=== PATIENT | female | born 1950 | race Caucasian/White ===

== ENCOUNTER → 2016-12-12 | Day surgery (SDC) | payer OTHER ==
[2016-11-21 10:45] VITALS: Ht 160 cm; Wt 95.5 kg
[~2016-12-12] VITALS: Ht 160 cm; Wt 95.5 kg
[~2016-12-12] MED LIST: ACETAMINOPHEN 325 MG TAB PO PRN; AMVISC PLUS 0.8ML SYRINGE INT OCU ONE; ASPI81TA28 PO; ATROPINE SULFATE 0.1 MG/ML 5ML SYR IV PRN; BSS FLUSH ONE; CHOL100010 PO; CYAN250T PO; EpHEDrine SULFATE INJ 50 MG/ML AMP IV PRN; EpINEphrine INJ 1MG/ML AMP 1 MG/ML AMP ONE; FENTANYL CITRATE INJ 50 MCG/1 ML 2 ML VIAL ONE; FOLIC ACID PO; INSDGI SC; LACTATED RINGER'S 1000ML 500 ML IV SCH; LIDOCAINE 3.5% OPH GEL PER APPLICATION CHARGE ONE; LIDOCAINE HCL 1% MPF 2 ML VIAL ONE; LOSA100T65 PO; MIDAZOLAM HCL 1 MG/ML 2ML VIAL ONE; NVLGI/PEN SQ; OCUCOAT 1 ML SOLN IO ONE; POVIDONE-IODINE OP SOLN 30 ML BTL ONE; PROPARACAINE 0.5% OP SOLN PER DROP CHARGE OPR SCH; ROSU5TAB PO; SODIUM HYALURONATE 10 MG/ML 0.85 ML SYR OPR ONE; SPIR25TA PO; TOBRAMYCIN/DEXAMETHASONE OPH OINT PER APPLN CHARGE ONE; ZNTT/150 PO
[2016-12-12] MEDS: PHENYLEPHRINE HCL 2.5% OP SOLN PER DROP CHARGE OPR SCH ×2 (09:10→09:16)
[2016-12-12] MEDS: TROPICAMIDE 1% OP SOLN PER DROP CHARGE OPR SCH ×2 (09:11→09:16)
[2016-12-12] MEDS: CYCLOPENTOLATE HCL 1% OP SOLN PER DROP CHARGE OPR SCH ×2 (09:12→09:17)
[2016-12-12] MEDS: KETOROLAC 0.5% OP SOLN PER DROP CHARGE OPR SCH ×2 (09:13→09:18)
[2016-12-12] MEDS: GATIFLOXACIN OP SOLN PER DROP CHARGE OPR SCH ×2 (09:15→09:40)
--- NOTE | 2016-12-12 09:30 | History & Physical Bridge - [place] ---
H&P Re-Evaluation Bridge Note: I have examined the patient, reviewed the History & Physical and in the interval since the performance of the History & Physical I have noted the following changes of clinical significance: No changes noted
[2016-12-12 10:21] VITALS: TEMP 36.8
--- NOTE | 2016-12-12 10:22 | Discharge Instructions-SurgCtr ---
Discharge Instructions Date of Service Dec 12, 2016. Visit Reason for Visit: Right Cataract Discharge Discharge Diagnosis / Problem: cataract Discharge Goals Goal(s): Improve function Activity Recommendations Activity Limitations: per Instructions/Follow-up section Anesthesia . Post Anesthesia Instructions: If you have had General Anesthesia or IV Sedation: * Do not drive today. * Resume driving when surgeon permits. * Do not make important decisions or sign legal documents today. * Call surgeon for: 1. Temperature elevations greater than 101 degrees F. 2. Uncontrollable pain. 3. Excessive bleeding. 4. Persistent nausea and vomiting. 5. Medication intolerance (nausea, vomiting or rash). * For nausea and vomiting use only clear liquids such as: tea, soda, bouillon until nausea subsides, then gradually increase diet as tolerated. * If you have any concerns or questions, call your surgeon's office. If physician is unavailable and it is an emergency, call 911 or go to the nearest emergency room. . Instructions / Follow-Up Instructions / Follow-Up ACTIVITY RECOMMENDATIONS: * No strenuous lifting, jogging or running for 4 days * No swimming or yard work for 1 week. * Limited bending is permitted, such as putting on shoes. RETURN TO SCHOOL/WORK: No work until seen by physician in office. MEDICATIONS: Resume previous medications unless instructed otherwise by your surgeon. This includes eye drops for glaucoma. Zymaxid/Gatifloxacin (bates cap) - one drop every 2 hours until bedtime Nevanac/Ilevro/Prolensa/Ketorolac (emery cap) - one drop every 4 hours until bedtime Prednisolone (white/pink cap, SHAKE WELL) - one drop every 2 hours until bedtime Starting tomorrow - all 3 drops every 4 hours until seen in the office Optive drops - as needed for discomfort SPECIAL CARE INSTRUCTIONS: * Wear eyeshield when sleeping, for four nights. * You may wear your own glasses or sunglasses while awake. * You may read or watch TV * You may shower and wash your face, but be gentle around the eye and pat dry. * Blurry vision and mild irritation are normal. * Call office if pain is more severe or vision becomes dark at . FOLLOW UP VISIT: Follow-up with Dr Carlson tomorrow. Diet Recommendations Home Diet: resume previous diet Procedures Procedures Performed: Right Cataract Phacoemulsification With Intraocular Lens Implant Pending Studies Studies pending at discharge: no Medical Emergencies . Who to Call and When: Medical Emergencies: If at any time you feel your situation is an emergency, please call 911 immediately. . Non-Emergent Contact Non-Emergency issues call your: Furniture Upholsterer Apprentice . . "Provider Documentation" section prepared by Phuc Carlson. .
--- NOTE | 2016-12-12 10:24 | [facility] Operative Report ---
Operative Report Date of Service Dec 12, 2016. Operative Report 1. PREOPERATIVE DIAGNOSIS: Cataract of the right eye. 2. POSTOPERATIVE DIAGNOSIS: Same. 3. PROCEDURE: Phacoemulsification with intraocular lens implantation of the right eye. SURGEON: Dr. Phuc Carlson. ANESTHESIA: Topical Lidocaine gel, 1% Non- Preserved intracameral Lidocaine, and monitored intravenous sedation. INDICATIONS FOR THE PROCEDURE: The patient is a 66 - year-old female with a history of cataract of the right eye causing significant visual impairment. The details of the proposed procedure were explained to the patient who asked appropriate questions and following discussion of all risks, benefits and alternatives agreed to have the procedure done. 4. OPERATION AND FINDINGS: DESCRIPTION OF PROCEDURE: After informed consent was obtained, the patient was brought to the Operating Room at the [facility]. The patient was placed in a supine position and then the right eye was prepped and draped in the usual sterile fashion for intraocular surgery. A drop of topical Lidocaine gel was placed in the operative eye. A wire lid speculum was then placed in the fornices. A corneal paracentesis was then created temporally. The Non-Preserved Lidocaine was then instilled into the anterior chamber. The anterior chamber was then pressurized with viscoelastic. A 2.0 mm clear corneal incision was then created temporally. A cystotome was inserted into the anterior chamber and used to create a tear in the anterior lens capsule. This capsular tear was then used to create a small flap and the flap was dragged in a counterclockwise direction in order to create a continuous curvilinear capsulorrhexis. Hydrodissection was accomplished with balanced salt solution. Phacoemulsification of the lens nucleus was then performed in a standard [id number] technique. The phaco time was 26 seconds with an average power of 7 %. The remaining cortical material was removed using irrigation aspiration. The anterior lens capsule was polished using Pepose polisher. The capsular bag was then filled with viscoelastic. A CrystalVaximm AO1UV +17.0 diopters lens was then loaded into the injector and injected into the capsular bag. The remaining viscoelastic was removed with the irrigation aspiration handpiece. The wound was hydrated and then checked and found to be watertight. The intraocular pressure was checked and found to be adequate. The wire lid speculum was removed and the patient's face was cleaned and dried. TobraDex ointment was placed in the inferior fornix. The patient was discharged to the Recovery Room having tolerated the procedure well. There were no complications. The patient will be seen tomorrow in the office for follow-up. I attest to the content of the Intraoperative Record and any orders documented therein. Any exceptions are noted below.
--- NOTE | 2016-12-12 10:35 | Anesthesia Progress Nt - [facility] ---
Anesthesia Post Op Note Date & Time Dec 12, 2016 at 10:35 Vital Signs Pain Intensity: 0 Vital Signs Past 12 Hours Date Time Temp Pulse Resp B/P (MAP) Pulse Ox O2 Delivery O2 Flow Rate FiO2 12/12/16 10:21 36.8 84 16 132/77 (95) 96 Room Air 12/12/16 08:56 36.6 79 18 160/80 (106) 99 Room Air Notes Mental Status: alert / awake / arousable, participated in evaluation Pt Amnestic to Procedure: Yes Nausea / Vomiting: adequately controlled Pain: adequately controlled Airway Patency, RR, SpO2: stable & adequate BP & HR: stable & adequate Hydration State: stable & adequate Anesthetic Complications: no major complications apparent
[2016-12-12 10:44] VITALS: BP 134/69; PULSE 74; O2SAT 95
== END | disposition home or self-care (01) ==
LOC: X.SURG 08:17
PROVIDERS: ATTEND Ophthalmology
DX: H26.9 Unspecified cataract (principal); I10 Essential (primary) hypertension; E78.5 Hyperlipidemia, unspecified; E11.65 Type 2 diabetes mellitus with hyperglycemia; K21.9 Gastro-esophageal reflux disease without esophagitis; M06.9 Rheumatoid arthritis, unspecified; E66.9 Obesity, unspecified; Z79.4 Long term (current) use of insulin; Z79.899 Other long term (current) drug therapy

== ENCOUNTER → 2016-12-30 | Outpatient (CLI) | payer OTHER ==
[~2016-12-30] MED LIST changes: -ACETAMINOPHEN 325 MG TAB PO PRN; -AMVISC PLUS 0.8ML SYRINGE INT OCU ONE; -ATROPINE SULFATE 0.1 MG/ML 5ML SYR IV PRN; -BSS FLUSH ONE; -EpHEDrine SULFATE INJ 50 MG/ML AMP IV PRN; -EpINEphrine INJ 1MG/ML AMP 1 MG/ML AMP ONE; -FENTANYL CITRATE INJ 50 MCG/1 ML 2 ML VIAL ONE; -LACTATED RINGER'S 1000ML 500 ML IV SCH; -LIDOCAINE 3.5% OPH GEL PER APPLICATION CHARGE ONE; -LIDOCAINE HCL 1% MPF 2 ML VIAL ONE; -MIDAZOLAM HCL 1 MG/ML 2ML VIAL ONE; -OCUCOAT 1 ML SOLN IO ONE; -POVIDONE-IODINE OP SOLN 30 ML BTL ONE; -PROPARACAINE 0.5% OP SOLN PER DROP CHARGE OPR SCH; -SODIUM HYALURONATE 10 MG/ML 0.85 ML SYR OPR ONE; -TOBRAMYCIN/DEXAMETHASONE OPH OINT PER APPLN CHARGE ONE
--- NOTE | 2016-12-30 16:00 | MAMMOGRAPHY REPORT ---
BILATERAL DIGITAL SCREENING MAMMOGRAM WITH CAD: 12/30/2016 CLINICAL HISTORY: Routine screening. Patient has no complaints. TECHNIQUE: Bilateral CC and MLO views were obtained. Current study was also evaluated with a Compute r Aided Detection (CAD) system. COMPARISON: Comparison is made to exams dated: 12/29/2015 mammogram, 12/27/2014 mammogram, 12/21/2013 m ammogram, 12/16/2012 mammogram, 12/16/2011 mammogram, and 12/12/2010 mammogram - [facility] nter. BREAST COMPOSITION: There are scattered areas of fibroglandular density in both breasts. FINDINGS: There are scattered and grouped benign round and rim calcifications bilaterally. No suspic ious mass, architectural distortion or cluster of microcalcifications is seen. IMPRESSION: ACR BI-RADS CATEGORY 1: NEGATIVE There is no mammographic evidence of malignancy. A 1 year screening mammogram is recommended. The pa tient will receive written notification of the results. Approximately 10% of breast cancers are not detected with mammography. A negative mammographic report should not delay biopsy if a clinically suggestive mass is present. Briana Dimas M.D. ay/:12/30/2016 14:38:16 Log Operations Coordinator: Agustina THOMAS(R)(M), [facility] letter sent: Normal 1/2 BI-RADS Code: ACR BI-RADS Category 1: Negative
== END | disposition home or self-care (01) ==
LOC: C.MAMM 11:10
PROVIDERS: ATTEND Obstetrics & Gynecology
DX: Z12.31 Encounter for screening mammogram for malignant neoplasm of breast (principal)

== ENCOUNTER → 2017-01-21 | Day surgery (SDC) | payer OTHER ==
[2016-12-25 11:43] VITALS: Ht 160 cm; Wt 95.5 kg
[~2017-01-21] VITALS: Ht 160 cm; Wt 95.5 kg
[~2017-01-21] MED LIST changes: +500ML BSS 0.3ML EPI 1:1000PF IRRIG ONE; +ACETAMINOPHEN 325 MG TAB PO PRN; +AMVISC PLUS 0.8ML SYRINGE INT OCU ONE; +ATROPINE SULFATE 0.1 MG/ML 5ML SYR IV PRN; +BSS FLUSH ONE; +EpHEDrine SULFATE INJ 50 MG/ML AMP IV PRN; +EpINEphrine INJ 1MG/ML AMP 1 MG/ML AMP ONE; +FENTANYL CITRATE INJ 50 MCG/1 ML 2 ML VIAL IV PRN; +LACTATED RINGER'S 1000ML 500 ML IV SCH; +LIDOCAINE 3.5% OPH GEL PER APPLICATION CHARGE ONE; +LIDOCAINE HCL 1% MPF 2 ML VIAL ONE; +MIDAZOLAM HCL 1 MG/ML 2ML VIAL ONE; +OCUCOAT 1 ML SOLN IO ONE; +ONDANSETRON INJ 2 MG/ML 2 ML VIAL IV PRN; +POVIDONE-IODINE OP SOLN 30 ML BTL ONE; +PROPARACAINE 0.5% OP SOLN PER DROP CHARGE OPL SCH; +TOBRAMYCIN/DEXAMETHASONE OPH OINT PER APPLN CHARGE ONE
[2017-01-21] MEDS: PHENYLEPHRINE HCL 2.5% OP SOLN PER DROP CHARGE OPL SCH ×2 (06:45→06:55)
[2017-01-21] MEDS: TROPICAMIDE 1% OP SOLN PER DROP CHARGE OPL SCH ×2 (06:46→06:56)
[2017-01-21] MEDS: CYCLOPENTOLATE HCL 1% OP SOLN PER DROP CHARGE OPL SCH ×2 (06:47→06:57)
[2017-01-21] MEDS: KETOROLAC 0.5% OP SOLN PER DROP CHARGE OPL SCH ×2 (06:48→06:58)
[2017-01-21] MEDS: GATIFLOXACIN OP SOLN PER DROP CHARGE OPL SCH ×2 (06:50→07:01)
[2017-01-21 07:27] VITALS: TEMP 36.4
--- NOTE | 2017-01-21 07:27 | Discharge Instructions-SurgCtr ---
Discharge Instructions Date of Service Jan 21, 2017. Visit Reason for Visit: Cataract Left Eye Discharge Discharge Diagnosis / Problem: cataract Discharge Goals Goal(s): Improve function Activity Recommendations Activity Limitations: per Instructions/Follow-up section Anesthesia . Post Anesthesia Instructions: If you have had General Anesthesia or IV Sedation: * Do not drive today. * Resume driving when surgeon permits. * Do not make important decisions or sign legal documents today. * Call surgeon for: 1. Temperature elevations greater than 101 degrees F. 2. Uncontrollable pain. 3. Excessive bleeding. 4. Persistent nausea and vomiting. 5. Medication intolerance (nausea, vomiting or rash). * For nausea and vomiting use only clear liquids such as: tea, soda, bouillon until nausea subsides, then gradually increase diet as tolerated. * If you have any concerns or questions, call your surgeon's office. If physician is unavailable and it is an emergency, call 911 or go to the nearest emergency room. . Instructions / Follow-Up Instructions / Follow-Up ACTIVITY RECOMMENDATIONS: * No strenuous lifting, jogging or running for 4 days * No swimming or yard work for 1 week. * Limited bending is permitted, such as putting on shoes. RETURN TO SCHOOL/WORK: No work until seen by physician in office. MEDICATIONS: Resume previous medications unless instructed otherwise by your surgeon. This includes eye drops for glaucoma. Zymaxid/Gatifloxacin (bates cap) - one drop every 2 hours until bedtime Nevanac/Ilevro/Prolensa/Ketorolac (emery cap) - one drop every 4 hours until bedtime Prednisolone/Durezol (white/pink cap, SHAKE WELL) - one drop every 2 hours until bedtime Starting tomorrow - all 3 drops every 4 hours until seen in the office Optive drops - as needed for discomfort SPECIAL CARE INSTRUCTIONS: * Wear eyeshield when sleeping, for four nights. * You may wear your own glasses or sunglasses while awake. * You may read or watch TV * You may shower and wash your face, but be gentle around the eye and pat dry. * Blurry vision and mild irritation are normal. * Call office if pain is more severe or vision becomes dark at . FOLLOW UP VISIT: Follow-up with Dr Carlson tomorrow. Diet Recommendations Home Diet: resume previous diet Procedures Procedures Performed: Left Cataract Phacoemulsification With Intraocular Lens Implant; Crystal Lens Pending Studies Studies pending at discharge: no Medical Emergencies . Who to Call and When: Medical Emergencies: If at any time you feel your situation is an emergency, please call 911 immediately. . Non-Emergent Contact Non-Emergency issues call your: Filling Machine Tender . . "Provider Documentation" section prepared by Phuc Carlson. .
--- NOTE | 2017-01-21 07:30 | [facility] Operative Report ---
Operative Report Date of Service Jan 21, 2017. Operative Report 1. PREOPERATIVE DIAGNOSIS: Cataract of the left eye. 2. POSTOPERATIVE DIAGNOSIS: Same. 3. PROCEDURE: Phacoemulsification with intraocular lens implantation of the left eye. SURGEON: Dr. Phuc Carlson. ANESTHESIA: Topical Lidocaine gel, 1% Non- Preserved intracameral Lidocaine, and monitored intravenous sedation. INDICATIONS FOR THE PROCEDURE: The patient is a 66 - year-old female with a history of cataract of the left eye causing significant visual impairment. The details of the proposed procedure were explained to the patient who asked appropriate questions and following discussion of all risks, benefits and alternatives agreed to have the procedure done. 4. OPERATION AND FINDINGS: DESCRIPTION OF PROCEDURE: After informed consent was obtained, the patient was brought to the Operating Room at the [facility]. The patient was placed in a supine position and then the left eye was prepped and draped in the usual sterile fashion for intraocular surgery. A drop of topical Lidocaine gel was placed in the operative eye. A wire lid speculum was then placed in the fornices. A corneal paracentesis was then created temporally. The Non-Preserved Lidocaine was then instilled into the anterior chamber. The anterior chamber was then pressurized with viscoelastic. A 2.0 mm clear corneal incision was then created temporally. A cystotome was inserted into the anterior chamber and used to create a tear in the anterior lens capsule. This capsular tear was then used to create a small flap and the flap was dragged in a counterclockwise direction in order to create a continuous curvilinear capsulorrhexis. Hydrodissection was accomplished with balanced salt solution. Phacoemulsification of the lens nucleus was then performed in a standard [id number]-[id number] technique. The phaco time was 24 seconds with an average power of 9 %. The remaining cortical material was removed using irrigation aspiration. The capsular bag was then filled with viscoelastic. A Crystalens A01UV +18.0 diopters lens was then loaded into the injector and injected into the capsular bag. The remaining viscoelastic was removed with the irrigation aspiration handpiece. The wound was hydrated and then checked and found to be watertight. The intraocular pressure was checked and found to be adequate. The wire lid speculum was removed and the patient's face was cleaned and dried. TobraDex ointment was placed in the inferior fornix. The patient was discharged to the Recovery Room having tolerated the procedure well. There were no complications. The patient will be seen tomorrow in the office for follow-up. I attest to the content of the Intraoperative Record and any orders documented therein. Any exceptions are noted below.
[2017-01-21 08:02] VITALS: BP 107/65; PULSE 81; O2SAT 95
--- NOTE | 2017-01-21 08:08 | Anesthesia Progress Nt - [facility] ---
Anesthesia Post Op Note Date & Time Jan 21, 2017 at 08:08 Vital Signs Pain Intensity: 0 Vital Signs Past 12 Hours Date Time Temp Pulse Resp B/P (MAP) Pulse Ox O2 Delivery O2 Flow Rate FiO2 01/21/17 08:02 81 16 107/65 (79) 95 Room Air 01/21/17 07:27 36.4 79 16 114/72 (86) 96 Room Air 01/21/17 06:17 37.0 84 18 138/107 (117) 94 Room Air Notes Mental Status: alert / awake / arousable, participated in evaluation Pt Amnestic to Procedure: Yes Nausea / Vomiting: adequately controlled Pain: adequately controlled Airway Patency, RR, SpO2: stable & adequate BP & HR: stable & adequate Hydration State: stable & adequate Anesthetic Complications: no major complications apparent
== END | disposition home or self-care (01) ==
LOC: X.SURG 06:10
PROVIDERS: ATTEND Ophthalmology
DX: H26.9 Unspecified cataract (principal); E11.9 Type 2 diabetes mellitus without complications; I10 Essential (primary) hypertension; E78.5 Hyperlipidemia, unspecified; M06.9 Rheumatoid arthritis, unspecified; K21.9 Gastro-esophageal reflux disease without esophagitis; I34.0 Nonrheumatic mitral (valve) insufficiency; Z79.4 Long term (current) use of insulin; Z79.82 Long term (current) use of aspirin; Z87.891 Personal history of nicotine dependence; Z80.3 Family history of malignant neoplasm of breast; Z82.49 Family history of ischemic heart disease and other diseases of the circulatory system

== ENCOUNTER → 2017-07-25 | Outpatient (CLI) | payer OTHER ==
[~2017-07-25] MED LIST changes: -500ML BSS 0.3ML EPI 1:1000PF IRRIG ONE; -ACETAMINOPHEN 325 MG TAB PO PRN; -AMVISC PLUS 0.8ML SYRINGE INT OCU ONE; -ATROPINE SULFATE 0.1 MG/ML 5ML SYR IV PRN; -BSS FLUSH ONE; -EpHEDrine SULFATE INJ 50 MG/ML AMP IV PRN; -EpINEphrine INJ 1MG/ML AMP 1 MG/ML AMP ONE; -FENTANYL CITRATE INJ 50 MCG/1 ML 2 ML VIAL IV PRN; -LACTATED RINGER'S 1000ML 500 ML IV SCH; -LIDOCAINE 3.5% OPH GEL PER APPLICATION CHARGE ONE; -LIDOCAINE HCL 1% MPF 2 ML VIAL ONE; -MIDAZOLAM HCL 1 MG/ML 2ML VIAL ONE; -OCUCOAT 1 ML SOLN IO ONE; -ONDANSETRON INJ 2 MG/ML 2 ML VIAL IV PRN; -POVIDONE-IODINE OP SOLN 30 ML BTL ONE; -PROPARACAINE 0.5% OP SOLN PER DROP CHARGE OPL SCH; +RANI150T85 PO; -TOBRAMYCIN/DEXAMETHASONE OPH OINT PER APPLN CHARGE ONE; -ZNTT/150 PO
--- NOTE | 2017-08-01 06:38 | CODING QUERY NO DIAGNOSIS ---
TREATMENT RENDERED WITHOUT A DIAGNOSIS Dr. Ferguson, To promote full compliance with coding requirements relating to patient care, physician participation is requested in all cases of computer language coder uncertainty. Please assist us with providing a diagnosis/symptom for the test(s) below: A diagnosis/symptom was not documented on your Order. A valid diagnosis/symptom is required to bill all insurances. Please remember that we are unable to code a diagnosis of rule out, probable, possible, questionable, or suspected. Tests that require a diagnosis: * Routine ECG DIAGNOSIS: DATE OF SERVICE: 07/25/17 Provider Signature: Date: Thank you Garrett Patten [facility] General Information Management Once completed, please kindly fax back to [phone] For questions please call [phone]
== END | disposition home or self-care (01) ==
LOC: C.CPL 10:20
DX: Z01.89 Encounter for other specified special examinations (principal)

== ENCOUNTER → 2017-10-16 | Outpatient (CLI) | payer OTHER ==
[~2017-10-16] MED LIST changes: -CHOL100010 PO; +CHOL100027 PO; +FOLI1TAB8 PO; -INSDGI SC; +INSDGIPEN SC; -ROSU5TAB PO
== END | disposition home or self-care (01) ==
LOC: C.LABPBG 07:32
PROVIDERS: ATTEND Internal Medicine Endocrinology, Diabetes & Metabolism
DX: E11.9 Type 2 diabetes mellitus without complications (principal); E78.5 Hyperlipidemia, unspecified

== ENCOUNTER → 2018-02-05 | Outpatient (CLI) | payer OTHER ==
--- NOTE | 2018-02-05 14:57 | MAMMOGRAPHY REPORT ---
BILATERAL DIGITAL SCREENING MAMMOGRAM TOMOSYNTHESIS WITH CAD: 02/05/2018 CLINICAL HISTORY: Routine screening. Patient has no complaints. TECHNIQUE: The study was acquired using full field digital technology and interpreted from soft copy. Breast tomosynthesis in addition to standard 2D mammography was performed. Current study was also ev aluated with a Computer Aided Detection (CAD) system. COMPARISON: Comparison is made to exams dated: 12/30/2016 mammogram, 12/29/2015 mammogram, 12/27/2014 m ammogram, 12/21/2013 mammogram, 12/16/2011 mammogram, and 12/12/2010 mammogram - [facility] nter. BREAST COMPOSITION: There are scattered areas of fibroglandular density in both breasts. FINDINGS: No suspicious masses, calcifications, or areas of architectural distortion are noted in either breast . There has been no significant interval change compared to prior exams. Scattered bilateral benign-a ppearing calcifications are not significantly changed. IMPRESSION: ACR BI-RADS CATEGORY 2: BENIGN There is no mammographic evidence of malignancy. A 1 year screening mammogram is recommended.( 019) The patient will receive written notification of the results. Some breast cancers are not detected with mammography. A negative mammographic report should not brigette y biopsy if a clinically suggestive mass is present. Christy Jefferson M.D. /:02/05/2018 13:40:13 Clam Grower: Amanda Cronin, [facility] letter sent: Normal 1/2 BI-RADS Code: ACR BI-RADS Category 2: Benign
== END | disposition home or self-care (01) ==
LOC: C.MAMM 11:57
PROVIDERS: ATTEND Obstetrics & Gynecology
DX: Z12.31 Encounter for screening mammogram for malignant neoplasm of breast (principal)

== ENCOUNTER 2018-07-22 12:07 | Inpatient (IN) ==
[2018-07-22 13:17] LABS: Basophils # (auto) 0.03 K/uL (0-0.2); Basophils % (auto) 0.4 %; Eosinophils # (auto) 0.02 K/uL (0-0.5); Eosinophils % (auto) 0.3 %; Hematocrit (blood only) 38.7 % (37-47); Hemoglobin 12.9 g/dL (12.0-16.0); Immature Granulocytes # (auto) 0.01 K/uL (0.00-0.02); Immature Granulocytes % (auto) 0.1 %; Lymphocytes # (auto) 0.98 K/uL (1.2-3.4); Mean Corpuscular Hgb Conc 33.3 g/dL (32-36); Mean Corpuscular Volume 88.4 fL (80-100); Mean Platelet Volume 10.6 fL (7.4-10.4); Monocytes % (auto) 6.6 %; Neutrophils % (auto) 79.6 %; Platelet Count 260 K/uL (130-400); Red Blood Count 4.38 M/uL (4.2-5.4); White Blood Count 7.54 K/uL (4.8-10.8)
[2018-07-22 13:33] LABS: Albumin Level 3.9 gm/dl (3.4-5.0); BUN Creatinine Ratio 10.3 (10-20); Calcium 9.9 mg/dl (8.5-10.1); Est GFR (African American) 57.4; Est GFR (Non-African American) 49.6; Potassium 4.5 mmol/L (3.5-5.1)
[2018-07-22 13:36] LABS: Albumin Globulin Ratio 0.8 (0.9-2); Bilirubin,Total 0.5 mg/dl (0.2-1); Globulin 4.6 gm/dl (2.5-4.0); Total Protein 8.5 gm/dl (6.4-8.2)
[2018-07-22 23:05] LABS: INR 1.1 (0.9-1.1); Prothrombin Time 10.9 Seconds (9.0-12.0)
[2018-07-23 06:13] LABS: Basophils # (auto) 0.02 K/uL (0-0.2); Basophils % (auto) 0.5 %; Eosinophils # (auto) 0.08 K/uL (0-0.5); Eosinophils % (auto) 1.8 %; Hematocrit (blood only) 37.7 % (37-47); Hemoglobin 12.4 g/dL (12.0-16.0); Immature Granulocytes # (auto) 0.01 K/uL (0.00-0.02); Immature Granulocytes % (auto) 0.2 %; Lymphocytes # (auto) 1.67 K/uL (1.2-3.4); Lymphocytes % (auto) 37.9 %; Mean Corpuscular Hgb Conc 32.9 g/dL (32-36); Mean Corpuscular Volume 88.9 fL (80-100); Mean Platelet Volume 10.6 fL (7.4-10.4); Monocytes % (auto) 6.8 %; Neutrophils # (auto) 2.33 K/uL (1.4-6.5); Neutrophils % (auto) 52.8 %; Platelet Count 216 K/uL (130-400); RDW Coefficient of Variation 13.2 % (11.5-14.5); RDW Standard Deviation 42.6 fL (36.4-46.3); Red Blood Count 4.24 M/uL (4.2-5.4); White Blood Count 4.41 K/uL (4.8-10.8)
[2018-07-24 09:10] LABS: Estimated Average Glucose 163 mg/dl
[2018-07-25 05:52] LABS: Hematocrit (blood only) 36.8 % (37-47); Hemoglobin 12.2 g/dL (12.0-16.0); Mean Corpuscular Hgb Conc 33.2 g/dL (32-36); Mean Corpuscular Volume 88.2 fL (80-100); Platelet Count 269 K/uL (130-400); RDW Coefficient of Variation 13.2 % (11.5-14.5); RDW Standard Deviation 41.9 fL (36.4-46.3); Red Blood Count 4.17 M/uL (4.2-5.4); White Blood Count 7.41 K/uL (4.8-10.8)
[2018-07-25 06:17] LABS: Creatinine Clr Calc Pharmacy 54.7 ml/min; Est GFR (African American) 65.8; Est GFR (Non-African American) 56.8
[2018-07-28 15:09] LABS: Anti Nuclear Antibody Screen POSITIVE (NEGATIVE)
[2018-07-31 14:15] LABS: ANA Pattern SPECKLED
== END 2018-07-25 12:57 ==
LOC: ED 12:07 → 2N 12:07 → SUATTDRO 20:07 → 2N 21:38

== ENCOUNTER 2018-09-23 21:40 | Inpatient (IN) ==
[2018-09-23] MEDS ORDERED: HYDROCODONE/ACETAMOPHEN 5/325MG TAB PO STA (22:11)
--- NOTE | 2018-09-23 22:36 | XRay Report ---
XR ankle RT min 3V routine CLINICAL HISTORY: Fall. right ankle injury pain COMPARISON: None. DISCUSSION: Oblique fracture distal fibula. Moderate generalized soft tissue edema. No evidence for d islocation. IMPRESSION: Oblique fracture distal fibula The above report was generated using voice recognition software. It may contain grammatical, syntax or spelling errors. Electronically signed by: Adrian Barrett M.D. 09/23/2018 10:35 PM
--- NOTE | 2018-09-24 01:58 | Emergency Department Note ---
Entered by Brady Stock acting as a scribe for Isael Wilburn MD ED Visit Note The patient was seen and examined by myself in conjunction with Meek Puckett. I agree with the history, physical and findings as documented. Please see the note for disposition and details. . : Fractured fibula Qualifiers: Encounter type: initial encounter Fibula location: distal Fracture type: closed Fracture morphology: other fracture Laterality: right Qualified Code(s): S82.831A - Other fracture of upper and lower end of right fibula, initial encounter for closed fracture The scribe's documentation has been prepared under my direction and personally reviewed by me in its entirety. I confirm that the note above accurately reflects all work, treatment, procedures, and medical decision making performed by me.
[2018-09-24] MEDS ORDERED: ACETAMINOPHEN 325 MG TAB PO PRN (02:30)
[2018-09-24] MEDS ORDERED: DICYCLOMINE HCL 10 MG CAP PO PRN (02:30)
[2018-09-24] MEDS ORDERED: INSULIN GLARGINE SOLOSTAR 100 UNITS/ML 3 ML PEN SC STA (02:30)
[2018-09-24] MEDS ORDERED: ONDANSETRON INJ 2 MG/ML 2 ML VIAL IV PRN (02:30)
[2018-09-24] MEDS ORDERED: GLUCOSE 40% GEL 15 GM TUBE PO PRN (02:45)
[2018-09-24] MEDS ORDERED: CARBOHYDRATES FOR HYPOGLYCEMIA PO PRN (02:45)
[2018-09-24] MEDS ORDERED: DEXTROSE 50% 50 ML SYRINGE IV PRN (02:45)
[2018-09-24] MEDS ORDERED: GLUCOSE 10 TABS/TUBE PO PRN (02:45)
[2018-09-24] MEDS ORDERED: GLUCAGON FOR INJ 1 MG VIAL SQ PRN (02:45)
--- NOTE | 2018-09-24 02:54 | History and Physical Report ---
DATE OF ADMISSION: 09/23/2018 CHIEF COMPLAINT: Status post fall and right fibula fracture. HISTORY OF PRESENT ILLNESS: This is a 68-year-old female with past medical history significant for diabetes, hypertension, past tobacco abuse, presents due to fall and found right fibula fracture. The patient has history of weakness in both the legs, more in the left leg.Initially patient was having left leg weakness mostly proximal greater than distal. EMG was done by neurology which showed left lumbosacral plexopathy. MRI also showed disc bulging at L4-5 and L5-S1 and she is status post back surgery with L4-S1 decompression fusion in 05/2018. After surgery she did okay for about a month then after that she developed progressive weakness of both legs, more in the left leg. She was again admitted with bilateral leg weakness in 07/2018 and she had extensive workup with MRI scans of the head, cervical spine, thoracic spine, lumbar spine. Her symptoms were thought to be mostly from the scar and inflammation of the lumbar spine and she was started on prednisone taper and discharged to [facility], where she stayed for about a week. She says her weakness has improved since then, but she still has ongoing weakness and she still gets physical therapy at home. She is walking with a walker since her surgery. Today for first time in the physical therapy at home, she was able to walk with a cane but later in the day when she go up from the bed, she was holding her walker and she suddenly fell down. No dizziness or any symptoms prior to the fall. She just fell down and she was having pain in the right leg and could not get up. She lives with her . Her went up to buy some groceries and she called her neighbors to come and help her. Her later came and patient was brought into the hospital, where she was found to have right distal fibula fracture. While resting she is doing okay. Her hemodynamics are stable. Denies any chest pain or shortness of breath. No cough, no fever, no chills, no headache, no blurred vision, no runny nose, no sore throat. Appetite is okay. No difficulty swallowing. No nausea, no vomiting, no abdominal pain. Normal bowel and bladder movements. No hematuria,or hematochezia, no burning micturition. No rash, no easy bruising or bleeding. ER tried to send her to [facility], but could no bed availability currently so we will admit her to the hospital with PT, OT and Social Service to help with discharge planning to [facility]. ALLERGIES: ALLOPURINOL, CRABS, SCALLOPS. PAST MEDICAL HISTORY: As mentioned above. PAST SURGICAL HISTORY: , laparoscopic hysterectomy, cholecystectomy, back surgery, cardiac catheterization, status post cataract surgeries, left total knee replacement, right total knee replacement, repair of right rotator cuff, colonoscopy. MEDICATIONS: The patient is currently on Tylenol 500 mg daily p.r.n., aspirin 81 mg p.o. daily, vitamin B12 2000 mcg p.o. daily, dicyclomine 10 mg p.o. q.i.d. p.r.n., folic acid 1 mg p.o. a.m., gabapentin 600 mg p.o. t.i.d., Lantus 48 units subcutaneous at bedtime, losartan 100 mg p.o. daily, Meloxicam 50 mg p.o. daily, NovoLog FlexPen t.i.d., vitamin D 4000 units p.o. daily. FAMILY HISTORY: Significant for father has diabetes, normal pressure hydrocephalus. Mother has stroke. Sister has lung disorder and stroke. SOCIAL HISTORY: and lives with her . Former smoker. Alcohol rarely. No drug use. REVIEW OF SYMPTOMS: As per HPI. Rest of review of systems negative. PHYSICAL EXAMINATION: GENERAL: The patient is obese, not in acute distress. VITAL SIGNS: Temperature 36.8, pulse 72, respiratory rate 18, blood pressure 152/75, oxygen 98% room air. HEENT: No pallor, no icterus. Pupils equal, round and reactive to light. NECK: No JVD, no neck masses, no carotid bruit. CARDIOVASCULAR: S1, S2 heard, regular rate and rhythm, no murmur, no gallop. RESPIRATORY SYSTEM: Normal AP diameter. No accessory muscle use. No wheezing, no crackles. ABDOMEN: Soft, bowel sounds present. Nontender. No distention. CENTRAL NERVOUS SYSTEM: Cranial nerves II-XII grossly intact. Nonfocal. EXTREMITIES: No erythema or edema seen. Right lower extremity is in wrap. LABS: Unavailable at this time. Right ankle x-ray shows oblique fracture of the distal fibula. ASSESSMENT AND PLAN: A 68-year-old female status post mechanical fall and right distal fibula fracture. 1. Mechanical fall and right distal fibula fracture. Ongoing weakness of the lower extremities since had lumbar back surgery, leg is wrapped in the Emergency Room, may need a cast. We will consult orthopedics. Physical therapy and occupation therapy, Social Service to help with rehabilitation placement. Observe in the medical floor. Pain control. 3. History of diabetes. Continue Lantus and insulin sliding scale. We will follow hemoglobin A1c levels. Follow the blood sugars. 4. History of hypertension. Continue losartan. We will monitor the blood pressure. 5. Deep venous thrombosis prophylaxis. We will place on heparin subcutaneously. TO discuss about DVT px at discharge with orthopedics. DISPOSITION: Observation medical floor. PT and OT prior to discharge. Social service to help with rehab placement. Level I full code. MTDD
[2018-09-24] MEDS: OXYCODONE/ACETAMINOPHEN 5mg/325mg TAB PO PRN ×4 (03:04→21:58)
[2018-09-24 05:45] LABS: Basophils # (auto) 0.02 K/uL (0-0.2); Basophils % (auto) 0.3 %; Eosinophils # (auto) 0.11 K/uL (0-0.5); Eosinophils % (auto) 1.6 %; Hematocrit (blood only) 35.3 % (37-47); Immature Granulocytes # (auto) 0.01 K/uL (0.00-0.02); Immature Granulocytes % (auto) 0.1 %; Lymphocytes # (auto) 1.76 K/uL (1.2-3.4); Lymphocytes % (auto) 25.4 %; Mean Platelet Volume 10.7 fL (7.4-10.4); Monocytes # (auto) 0.48 K/uL (0.11-0.59); Monocytes % (auto) 6.9 %; Neutrophils # (auto) 4.54 K/uL (1.4-6.5); Neutrophils % (auto) 65.7 %; Platelet Count 182 K/uL (130-400); RDW Coefficient of Variation 14.5 % (11.5-14.5); Red Blood Count 4.01 M/uL (4.2-5.4); White Blood Count 6.92 K/uL (4.8-10.8)
[2018-09-24] MEDS ORDERED: HEPARIN SOD 5,000 UNIT/0.5 ML VIAL SQ SCH (06:00)
--- NOTE | 2018-09-24 06:24 | Emergency Department Note ---
History of Present Illness General Chief complaint: Ankle Pain Stated complaint: ANKLE PAIN, LEG WEAKNESS, FALL Time Seen by Provider: 09/23/18 21:57 History of Present Illness Maximum Pain Intensity: 6 This is a 68-year-old female presenting to the emergency department for evaluation right lower leg pain. The patient states that approximately 4 hours ago she was at her kitchen table, stood, and fell. The patient reports a "crunch" was heard, causing her significant concern. The patient was able to stand and ambulate with the assistance of her after the fall. The patient has a fairly persistent history of bilateral lower extremity weakness. 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 Correia's office. The patient did well after the surgery, but slowly began developing bilateral leg weakness. The patient has undergone several rounds of physical therapy for strength, but she continues with difficulty ambulating. Her left leg is primarily her weak leg, and her right leg is her good leg. The patient is concerned as she feels that she may have injured her right leg. She does have a history of neuropathy secondary to diabetes. She rates her current discomfort a 5/10. She did take a tramadol this evening without significant improvement of symptoms. She did not strike her head or lose consciousness. She does not report other extremity injury. The fall sounds mechanical in nature. Home Medications Home Medications Medication Instructions Recorded Confirmed Type Lantus U-100 Insulin 48 unit SUBCUT QPM 05/11/18 09/23/18 History Novolog Flexpen U-100 Insulin 1 dose SUBCUT TIDM 05/11/18 09/23/18 History Vitamin D3 4,000 unit PO QPM 05/11/18 09/23/18 History acetaminophen [Acetaminophen Extra 500 mg PO QDB PRN 05/11/18 09/23/18 History Strength] aspirin [Ecotrin Low Strength] 81 mg PO QPM 05/11/18 09/23/18 History cyanocobalamin (vitamin B-12) 2,000 mcg PO QAM 05/11/18 09/23/18 History [Vitamin B-12] dicyclomine 10 mg PO QID PRN 05/11/18 09/23/18 History folic acid 1 mg PO QPM 05/11/18 09/23/18 History losartan 100 mg PO QAM 05/11/18 09/23/18 History gabapentin 600 mg PO TID 09/23/18 09/23/18 History meloxicam 15 mg PO QAM 09/23/18 09/23/18 History Allergies Allergy/AdvReac Type Severity Reaction Status Date / Time allopurinol Allergy Intermediate RASH Verified 09/23/18 23:00 crab Allergy Mild itching Verified 09/23/18 23:00 scallops AdvReac Intermediate N/V Verified 09/23/18 23:00 Lobster AdvReac Severe N/V Uncoded 09/23/18 23:00 Past Med/Surg History Medical History Irritable bowel disease (Chronic) Lumbar radicular pain (Chronic) Radiation down LLE 2/2 spinal stenosis Hyperlipidemia (Chronic) Hypertension (Chronic) DM type 2 (diabetes mellitus, type 2) (Chronic) Diabetes mellitus, type 2 (Inactive) Hx of fall (Inactive) Patient reports that she has fallen several tiimes d/t to weakness and nerve issues in left leg Hyperlipidemia (Inactive) Hypertension (Inactive) Spinal stenosis (Inactive) compression from L3-L5 Surgical History History of cardiac cath (Chronic) ? [facility] - Patient does not know date History of cataract surgery (Chronic) right and left with lens implants History of hysterectomy (Chronic) BSO History of total left knee replacement (Chronic) History of total right knee replacement (Chronic) History of cholecystectomy (Chronic) H/O section (Chronic) H/O repair of right rotator cuff (Chronic) History of section (Inactive) x2 History of cholecystectomy (Inactive) History of colonoscopy (Inactive) History of repair of rotator cuff (Inactive) right Hx of total knee replacement (Inactive) left 2012 and right 2013 Social History Communication Ability: Effective Beliefs That Will Affect Care: None Current Living Situation: Spouse current occupational status: retired other: 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 Feels Safe at Home: Yes Safety Concerns: Feels Safe At This Time Smoking Status: Never smoker Hx Alcohol Use: Yes Hx Substance Use: No Review of Systems A total of 10 systems reviewed and were otherwise negative Physical Exam Vital Signs Vital Signs - 24 hr 09/23/18 21:53 09/24/18 00:00 09/24/18 01:48 Temperature 36.8 C Temperature Source Oral Sepsis Recent Fever Within 48 Hours No Sepsis Action Taken by Nursing No Action Required Pulse Rate 97 H 92 H Pulse Rate [Right Finger] 72 Pulse Rhythm [Right Finger] Regular Pulse Strength [Right Finger] Normal Respiratory Rate 20 18 17 Respiratory Effort / Characteristics Non-Labored Spontaneous Respiratory Depth Normal Respiratory Pattern Regular Blood Pressure 166/90 H 152/76 H Blood Pressure [Right Arm] 152/75 H Blood Pressure Mean 115 Blood Pressure Mean [Right Arm] 100 Blood Pressure Position [Right Arm] Lying Pulse Oximetry 97 98 95 Oxygen Delivery Method Room Air Room Air Room Air 09/24/18 02:26 Temperature 36.7 C Temperature Source Oral Sepsis Recent Fever Within 48 Hours Sepsis Action Taken by Nursing Pulse Rate Pulse Rate [Right Finger] 87 Pulse Rhythm [Right Finger] Regular Pulse Strength [Right Finger] Respiratory Rate 20 Respiratory Effort / Characteristics Non-Labored Spontaneous Respiratory Depth Normal Respiratory Pattern Regular Blood Pressure Blood Pressure [Right Arm] 178/78 H Blood Pressure Mean Blood Pressure Mean [Right Arm] 111 Blood Pressure Position [Right Arm] Pulse Oximetry 99 Oxygen Delivery Method Room Air VITALS: Vitals are noted on the nurse's note and reviewed by myself. Vital signs with mildly elevated blood pressure GENERAL: Pleasant appearing white female who is elderly and cooperative with examination. HEAD: Normocephalic atraumatic. EARS: External ear normal. External auditory canals clear, tympanic membranes pearly emery without erythema or effusion bilaterally. EYES: Pupils equal round and reactive to light and accommodation. Conjunctivae without injection, sclerae without icterus. Extraocular movements intact. NOSE: Patent, turbinates without inflammation or discharge. MOUTH: Mucous membranes moist. Tonsils are not enlarged. Pharynx without er ythema, blood, or exudate. Uvula midline. Airway patent. NECK: Supple without nuchal rigidity. No lymphadenopathy. No thyromegaly. Cervical spine is nontender. HEART: Regular rate and rhythm without murmurs gallops or rubs. LUNGS: Clear to auscultation bilaterally without wheezes, rales or rhonchi. No retractions or accessory muscle use. ABDOMEN: Positive normal bowel sounds x 4. Soft, nontender, without masses or organomegaly. MUSCULOSKELETAL: No significant lower extremity edema noted. There is tenderness along the lateral aspect of the right ankle into the right lateral malleolus. No gross deformity, laceration, or bleeding noted. Patient is able to move the toes on command. Pulses are intact. NEURO: Patient was alert and oriented to person place and time. CN II through XII grossly intact SKIN: The skin was without rashes, erythema, edema, or bruising. Capillary r efill less than 2 seconds. Course Administered Medications Oxycodone/Acetaminophen (Percocet 5mg/325mg) 1 tab PO Q6H PRN PRN Reason: Pain Stop: 10/08/18 02:29 Last Admin: 09/24/18 03:04 Dose: 1 tab Documented by: [id number] Discontinued Medications Hydrocodone Bitart/Acetaminophen ([place] 5/325) 2 tab PO NOW STA Stop: 09/23/18 22:12 Last Admin: 09/23/18 22:18 Dose: 2 tab Documented by: [id number] Insulin Glargine (Lantus Solostar Pen) 20 units SC NOW STA Stop: 09/24/18 02:31 Last Admin: 09/24/18 03:06 Dose: Not Given Documented by: [id number] Cosigned by: [id number] Medical Decision Making Differential Diagnosis Differential diagnosis includes, but is not limited to: Sprain, strain, fracture, dislocation, subluxation, contusion, and others Laboratory Data Result diagrams: 09/24/18 05:27 09/24/18 05:27 Lab Results 09/23/18 09/24/18 Range/Units 23:16 05:27 WBC 6.92 (4.8-10.8) K/uL RBC 4.01 L (4.2-5.4) M/uL Hgb 12.0 (12.0-16.0) g/dL Hct 35.3 L (37-47) % MCV 88.0 (80-100) fL MCH 29.9 (25-34) pg MCHC 34.0 (32-36) g/dL RDW Std Deviation 47.0 H (36.4-46.3) fL RDW Coeff of Gold 14.5 (11.5-14.5) % Plt Count 182 (130-400) K/uL MPV 10.7 H (7.4-10.4) fL Immature Gran % (Auto) 0.1 % Neut % (Auto) 65.7 % Lymph % (Auto) 25.4 % [place] % (Auto) 6.9 % Eos % (Auto) 1.6 % Baso % (Auto) 0.3 % Immature Gran # (Auto) 0.01 (0.00-0.02) K/uL Neut # (Auto) 4.54 (1.4-6.5) K/uL Lymph # (Auto) 1.76 (1.2-3.4) K/uL [place]lee # (Auto) 0.48 (0.11-0.59) K/uL Eos # (Auto) 0.11 (0-0.5) K/uL Baso # (Auto) 0.02 (0-0.2) K/uL POC Glucose 210 H (70-99) Imaging Data Radiologist's Impression: XR ankle RT min 3V routine CLINICAL HISTORY: Fall. right ankle injury pain COMPARISON: None. DISCUSSION: Oblique fracture distal fibula. Moderate generalized soft tissue edema. No evidence for dislocation. IMPRESSION: Oblique fracture distal fibula MDM Narrative Physical exam and history were performed. Nursing notes, EMR, and Medication List were personally reviewed. Patient appears to have ongoing bilateral lower extremity weakness. She has difficulty ambulating at home at baseline. She regularly uses a walker, however she did have a fall today and is tender along the distal right lower leg. The patient was given oral Vicodin here in the department for comfort. The case was discussed with my attending physician, who also independently evaluated the patient and remained involved in care and decision-making. X-rays were obtained and reviewed by myself and radiology showing an oblique fracture through the distal fibula. I discussed options of care with the patient. She was placed in an Ortho-Glass splint with neurovascular status remaining intact. We attempted to ambulate the patient with a walker, however she had significant difficulty even getting off the bed and moving a few steps. After multiple attempts the patient was not able to ambulate with this new injury. I did engage case management, who contacted [facility] as this may be a likely disposition point for the patient. [facility] does not have beds this evening to facilitate intake of the patient. I discussed options of care with the patient and family at length, and she does not feel comfortable going home. The case was discussed with the on-call [facility] hospitalist who agreed to evaluate the patient here in the department. Please see their dictation for further patient course, plan, and disposition. The chart was completed utilizing [employer] Voice Recognition Software. Grammatical errors, random word insertions, pronoun errors, and incomplete sentences are an occasional consequence of this system due to software limitations, ambient noise, and hardware issues. Any formal questions or concerns about the content, text, or information contained within the body of this dictation should be directly addressed to the provider for clarification. . Impression & Plan Fractured fibula, Unable to ambulate Discharge Plan Visit Data *Final* Discharge Date/Time: 09/24/18 01:48 Chief Complaint: Ankle Pain Stated Complaint: ANKLE PAIN, LEG WEAKNESS, FALL ED Provider: Isael Wilburn ED Midlevel Provider: Meek Jordan Discharge Problem: Fractured fibula, Unable to ambulate Patient Disposition: Admitted As Inpatient Discharge Instructions Interventions: ED Discharge Assessment Last Done: 09/24/18 01:48 Discharge Problem: Fractured fibula Qualifiers: Encounter type: initial encounter Fibula location: distal Fracture type: closed Fracture morphology: other fracture Laterality: right Qualified Code(s): S82.831 A - Other fracture of upper and lower end of right fibula, initial encounter for closed fracture
[2018-09-24 06:25] LABS: BUN Creatinine Ratio 22.1 (10-20); Calcium 9.4 mg/dl (8.5-10.1); Creatinine Clr Calc Pharmacy 70.1 ml/min; Est GFR (African American) 89.3; Magnesium 1.8 mg/dl (1.8-2.4)
[2018-09-24 07:04] LABS: Estimated Average Glucose 203 mg/dl; Hemoglobin A1C 8.7 % (4.5-5.6)
[2018-09-24] MEDS ORDERED: INSULIN ASPART 100 UNITS/ML 3 ML PEN SC SCH (07:30)
[2018-09-24 07:38] LABS: INR 1.1 (0.9-1.1); Prothrombin Time 10.8 Seconds (9.0-12.0)
[2018-09-24] MEDS: CYANOCOBALAMIN 500 MCG TABLET (VITAMIN B-12) PO SCH (07:50)
[2018-09-24] MEDS: LOSARTAN POTASSIUM 50 MG TAB PO SCH (07:51)
[2018-09-24] MEDS: GABAPENTIN 600 MG TAB PO SCH ×3 (07:51→21:27)
[2018-09-24] MEDS: MELOXICAM 7.5 MG TAB PO SCH (07:51)
[2018-09-24] MEDS ORDERED: Nursing to Pharmacy Communication ONE (08:18)
--- NOTE | 2018-09-24 12:54 | Consultation Report ---
DATE OF ADMISSION: 09/24/2018 CHIEF COMPLAINT: Right ankle pain, orthopedic. HISTORY OF PRESENT ILLNESS: Jagruti is pleasant, she is 68. I do remember remotely from the office. She had spinal stenosis. She had surgery expertly done by Dr. Correia a few months ago, had progressive weakness, had some lower extremity difficulty, a foot drop, some improvement and some regression. She got up and fell, suffered acute injury to her right lower extremity yesterday, 09/23/2018. PAST MEDICAL HISTORY: Significant for hypertension, diabetes. PAST SURGICAL HISTORY: Laparoscopic hysterectomy, cholecystectomy, relatively recent spine surgery, cataract surgery, bilateral knee replacements. FAMILY HISTORY: Significant for diabetes, mother with a stroke. MEDICATIONS: Listed. REVIEW OF SYSTEMS: Her major complaint is her right ankle from an orthopedic standpoint. PHYSICAL EXAMINATION: VITAL SIGNS: Remain stable. EXTREMITIES: Her ankle was wrapped up appropriately and protected with a splint and Justin bandages. IMAGING DATA: X-rays reviewed demonstrated a completely nondisplaced fracture of the distal fibula. IMPRESSION: Distal fibular fracture, completely nondisplaced. PLAN: Includes a [place] Cam walker for support. I will allow about 50 percent weightbearing. She should be stable to be discharged home or to [facility] any time in the next 24-48 hours. JAKUB
[2018-09-24] MEDS: INSULIN ASPART 100 UNITS/ML 3 ML PEN SC SCH ×3 (13:16→21:30)
--- NOTE | 2018-09-24 16:29 | Hospitalist Progress Note ---
Date of Service September 24, 2018 Assessment & Plan (1) Fractured fibula: A 68-year-old female status post mechanical fall and right distal fibula fracture. Mechanical fall and right distal fibula non displaced fracture. -patient's left leg in splint as placed in the Emergency room -patient evaluated by orthopedic service and that this a nonoperative injury. orthopedic service comments about a [place] Cam walker for support and allow about 50 percent weightbearing. -Case management applied for physical therapy center admission to [facility] but a bed there is not available at this time -PT/OT while inpatient for now -continue with pain control medications, continue with bowel regimen to avoid narcotic induced ileus History of L3-S1 lumbar decompression fusion Diabetes Mellitus Type 2 HbA1c is 8.7 Continue Lantus and insulin sliding scale History of hypertension. Continue losartan Deep venous thrombosis prophylaxis. heparin subcutaneously Full Code Subjective Patient resting on bed. Patient had pain medications for the right leg. No acute distress. patient denies shortness of breath. No chest pain. No abdominal pain. No vomiting. No lightheadedness Physical Exam Vital Signs (Past 24 Hours): Last Vital Signs Temp 36.8 C 09/24/18 16:17 Pulse 84 09/24/18 16:17 Resp 18 09/24/18 16:17 BP 134/75 09/24/18 16:17 Pulse Ox 97 09/24/18 16:17 Constitutional: WD/WN, vitals as above Eyes: PERRL, conjunctivae normal, anicteric sclerae EOM intact bilaterally ENMT: external ear and nose normal, oropharynx normal Neck: trachea midline, no thyromegaly Respiratory: normal respiratory effort, lungs clear to auscultation Cardiovascular: RRR, no murmur, no edema Gastrointestinal (Abdomen): normal bowel sounds, soft, nontender, no hepatosplenomegaly Musculoskeletal: Head/Neck/Chest: normocephalic and head atraumatic Extremities: + lower leg abnormality (right leg in splint) Neurologic: PERRL, EOMI, accommodation nl, no face palsy, no dysarthria (1) Fractured fibula Encounter type: initial encounter Fibula location: distal Fracture morphology: other fracture Fracture type: closed Laterality: right Qualified Code(s): S82.831A - Other fracture of upper and lower end of right fibula, initial encounter for closed fracture
[2018-09-24] MEDS ORDERED: POLYETHYLENE (MIRALAX) 17 GM PACK PO PRN (16:35)
[2018-09-24] MEDS ORDERED: OXYCODONE HCL IR 5 MG TAB (IMMEDIATE RELEASE) PO PRN (16:36)
[2018-09-24] MEDS: SENNA 8.6 MG TAB PO SCH (18:07)
[2018-09-24] MEDS ORDERED: LANTUS PER UNIT CHARGE SQ SCH (21:00)
[2018-09-24] MEDS ORDERED: ASPIRIN 81 MG ECTAB PO SCH (21:00)
[2018-09-24] MEDS ORDERED: CHOLECALCIFEROL 1,000 UNITS TAB PO SCH (21:00)
[2018-09-24] MEDS ORDERED: INSULIN GLARGINE SOLOSTAR 100 UNITS/ML 3 ML PEN SC SCH (21:00)
[2018-09-24] MEDS ORDERED: FOLIC ACID 1 MG TAB PO SCH (21:00)
[2018-09-24] MEDS: DOCUSATE SODIUM 100 MG CAP PO SCH (21:26)
[2018-09-24] MEDS: HEPARIN SOD 5,000 UNIT/0.5 ML VIAL SQ SCH (21:37)
[2018-09-25] MEDS ORDERED: LORazepam 0.5 MG TAB PO ONE (06:30)
[2018-09-25] MEDS: OXYCODONE/ACETAMINOPHEN 5mg/325mg TAB PO PRN (07:21)
[2018-09-25] MEDS: GABAPENTIN 600 MG TAB PO SCH (07:22)
[2018-09-25 07:41] VITALS: BP 165/84; PULSE 93; TEMP 97.9; O2SAT 96
[2018-09-25] MEDS: MELOXICAM 7.5 MG TAB PO SCH (08:47)
[2018-09-25] MEDS: DOCUSATE SODIUM 100 MG CAP PO SCH (08:47)
[2018-09-25] MEDS: SENNA 8.6 MG TAB PO SCH (08:47)
[2018-09-25] MEDS: LOSARTAN POTASSIUM 50 MG TAB PO SCH (08:47)
[2018-09-25] MEDS: CYANOCOBALAMIN 500 MCG TABLET (VITAMIN B-12) PO SCH (08:47)
[2018-09-25] MEDS: INSULIN ASPART 100 UNITS/ML 3 ML PEN SC SCH (08:50)
[2018-09-25] MEDS: HEPARIN SOD 5,000 UNIT/0.5 ML VIAL SQ SCH (08:51)
--- NOTE | 2018-09-25 10:23 | Hospitalist Progress Note ---
Date of Service September 25, 2018 Assessment & Plan (1) Fractured fibula: A 68-year-old female status post mechanical fall and right distal fibula fracture. Mechanical fall and right distal fibula non displaced fracture. -patient's left leg in splint as placed in the Emergency room -patient evaluated by orthopedic service on 09/24/18and that this a nonoperative injury. orthopedic service comments about a [place] Cam walker for support and allow about 50 percent weightbearing. -Patient is to be discharged to physical therapy center [facility] Patient has a [place] Cam walker for support of right leg Activity is 50% weight bearing as per orthopedic Dr. Pratt -Patient should make appointment to see Orthopedic Dr. Pratt or his colleagues in 2 weeks [facility] Address: [address], [place] [address] -Patient should make appointment to see primary medical Dr. Sabrina Garland in 1 week Address: [address] [place] [address] [place] [address] Phone: [facility] PDMP was checked and prior to this hospital stay patient last had tramadol 50 mg tablet filled on on 09/08/18 for 8 day supply. Patient has no other active controlled substances. -Patient may taker acetaminophen 325 mg q6 hours as needed for mild pain Patient may take oxycodone 5mg q8 as needed for moderate pain (12 tablets prescribed) Patient has prescription of trazadone 50 mg qhs for sleep Patient also prescribed sennoside and Miralax to avoid constipation History of L3-S1 lumbar decompression fusion Diabetes Mellitus Type 2 HbA1c is 8.7 Continue Lantus and insulin sliding scale as outpatient Hypertension. Continue losartan Deep venous thrombosis prophylaxis. 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 Pratt Patient should make appointment to see Orthopedic Dr. Pratt or his colleagues in 2 weeks [facility] Address: [address], [place] [address] Patient should make appointment to see primary medical Dr. Sabrina Garland in 1 week Address: [address] [place] [address] [address], [place] [address] Phone: [place] PDMP was checked and prior to this hospital stay patient last had tramadol 50 mg tablet filled on on 09/08/18 for 8 day supply. Patient has no other active controlled substances. Patient may taker acetaminophen 325 mg q6 hours as needed for mild pain Patient may take oxycodone 5mg q8 as needed for moderate pain (12 tablets prescribed) Patient has prescription of trazadone 50 mg qhs for sleep Patient also prescribed sennoside and Miralax to avoid constipation Subjective Right leg in [place] Cam walker. Patient has accepting bed for [facility]. Patient sitting up at bedside. no chest pain, no shortness of breath, no abdominal pain. hospitalist discussed with patient about medications including her recent primary care doctor recommendations of trazadone 50 mg qhs for sleep Physical Exam Vital Signs (Past 24 Hours): Last Vital Signs Temp 36.6 C 09/25/18 10:08 Pulse 93 H 09/25/18 10:08 Resp 18 09/25/18 10:08 BP 165/84 H 09/25/18 10:08 Pulse Ox 96 09/25/18 10:08 Constitutional: WD/WN, vitals as above Eyes: PERRL, conjunctivae normal, anicteric sclerae EOM intact bilaterally ENMT: external ear and nose normal, oropharynx normal Neck: trachea midline, no thyromegaly Respiratory: normal respiratory effort, lungs clear to auscultation Cardiovascular: RRR, no murmur, no edema Gastrointestinal (Abdomen): normal bowel sounds, soft, nontender, no hepatosplenomegaly Musculoskeletal: Head/Neck/Chest: normocephalic and head atraumatic Extremities: + lower leg abnormality (right leg in [place] Cam walker) Neurologic: PERRL, EOMI, accommodation nl, no face palsy, no dysarthria (1) Fractured fibula Encounter type: initial encounter Fibula location: distal Fracture morphology: other fracture Fracture type: closed Laterality: right Qualified Code(s): S82.831A - Other fracture of upper and lower end of right fibula, initial encounter for closed fracture
--- NOTE | 2018-09-25 10:29 | Discharge Summary ---
Date of Service September 25, 2018 Admission HPI Per Admitting Provider HISTORY OF PRESENT ILLNESS: This is a 68-year-old female with past medical history significant for diabetes, hypertension, past tobacco abuse, presents due to fall and found right fibula fracture. The patient has history of weakness in both the legs, more in the left leg.Initially patient was having left leg weakness mostly proximal greater than distal. EMG was done by neurology which showed left lumbosacral plexopathy. MRI also showed disc bulging at L4-5 and L5-S1 and she is status post back surgery with L4-S1 decompression fusion in 05/2018. After surgery she did okay for about a month then after that she developed progressive weakness of both legs, more in the left leg. She was again admitted with bilateral leg weakness in 07/2018 and she had extensive workup with MRI scans of the head, cervical spine, thoracic spine, lumbar spine. Her symptoms were thought to be mostly from the scar and inflammation of the lumbar spine and she was started on prednisone taper and discharged to [facility], where she stayed for about a week. She says her weakness has improved since then, but she still has ongoing weakness and she still gets physical therapy at home. She is walking with a walker since her surgery. Today for first time in the physical therapy at home, she was able to walk with a cane but later in the day when she go up from the bed, she was holding her walker and she suddenly fell down. No dizziness or any symptoms prior to the fall. She just fell down and she was having pain in the right leg and could not get up. She lives with her . Her went up to buy some groceries and she called her neighbors to come and help her. Her later came and patient was brought into the hospital, where she was found to have right distal fibula fracture. While resting she is doing okay. Her hemodynamics are stable. Denies any chest pain or shortness of breath. No cough, no fever, no chills, no headache, no blurred vision, no runny nose, no sore throat. Appetite is okay. No difficulty swallowing. No nausea, no vomiting, no abdominal pain. Normal bowel and bladder movements. No hematuria,or hematochezia, no burning micturition. No rash, no easy bruising or bleeding. ER tried to send her to [facility], but could no bed availability currently so we will admit her to the hospital with PT, OT and Social Service to help with discharge planning to [facility]. ALLERGIES: ALLOPURINOL, CRABS, SCALLOPS. PAST MEDICAL HISTORY: As mentioned above. PAST SURGICAL HISTORY: , laparoscopic hysterectomy, cholecystectomy, back surgery, cardiac catheterization, status post cataract surgeries, left total knee replacement, right total knee replacement, repair of right rotator cuff, colonoscopy. MEDICATIONS: The patient is currently on Tylenol 500 mg daily p.r.n., aspirin 81 mg p.o. daily, vitamin B12 2000 mcg p.o. daily, dicyclomine 10 mg p.o. q.i.d. p.r.n., folic acid 1 mg p.o. a.m., gabapentin 600 mg p.o. t.i.d., Lantus 48 units subcutaneous at bedtime, losartan 100 mg p.o. daily, Meloxicam 50 mg p.o. daily, NovoLog FlexPen t.i.d., vitamin D 4000 units p.o. daily. FAMILY HISTORY: Significant for father has diabetes, normal pressure hydrocephalus. Mother has stroke. Sister has lung disorder and stroke. SOCIAL HISTORY: and lives with her . Former smoker. Alcohol rarely. No drug use. Admission Exam Per Admitting Provider PHYSICAL EXAMINATION: GENERAL: The patient is obese, not in acute distress. VITAL SIGNS: Temperature 36.8, pulse 72, respiratory rate 18, blood pressure 152/75, oxygen 98% room air. HEENT: No pallor, no icterus. Pupils equal, round and reactive to light. NECK: No JVD, no neck masses, no carotid bruit. CARDIOVASCULAR: S1, S2 heard, regular rate and rhythm, no murmur, no gallop. RESPIRATORY SYSTEM: Normal AP diameter. No accessory muscle use. No wheezing, no crackles. ABDOMEN: Soft, bowel sounds present. Nontender. No distention. CENTRAL NERVOUS SYSTEM: Cranial nerves II-XII grossly intact. Nonfocal. EXTREMITIES: No erythema or edema seen. Right lower extremity is in wrap. Principal Diagnosis mechanical fall and right distal fibula fracture (nondisplaced, closed fracture), Diabetes Mellitus Type 2 on terminal operator current use of insulin, Hypertension Discharge Exam Constitutional WD/WN, vitals as above Eyes PERRL, conjunctivae normal, anicteric sclerae EOM intact bilaterally ENMT external ear and nose normal, oropharynx normal Neck trachea midline, no thyromegaly Respiratory normal respiratory effort, lungs clear to auscultation Cardiovascular RRR, no murmur, no edema Gastrointestinal (Abdomen) normal bowel sounds, soft, nontender, no hepatosplenomegaly Musculoskeletal Head/Neck/Chest: normocephalic and head atraumatic Extremities: + lower leg abnormality (right leg in [place] Cam walker) Neurologic PERRL, EOMI, accommodation nl, no face palsy, no dysarthria Discharge Data Allergies Allergy/AdvReac Type Severity Reaction Status Date / Time allopurinol Allergy Intermediate RASH Verified 09/23/18 23:00 crab Allergy Mild itching Verified 09/23/18 23:00 scallops AdvReac Intermediate N/V Verified 09/23/18 23:00 Lobster AdvReac Severe N/V Uncoded 09/23/18 23:00 Consultations 09/24/18 00:33 ED Decision to Admit Stat 09/24/18 02:30 Consult Case Management - Discharge Planning Routine 09/24/18 08:00 Consult Orthopedic Surgery Routine Hospital Course (1) Fractured fibula: A 68-year-old female status post mechanical fall and right distal fibula fracture. Mechanical fall and right distal fibula non displaced fracture. -patient's left leg in splint as placed in the Emergency room -patient evaluated by orthopedic service on 09/24/18and that this a nonoperative injury. orthopedic service comments about a [place]vel Cam walker for support and allow about 50 percent weightbearing. -Patient is to be discharged to physical therapy center [facility] Patient has a [place] Cam walker for support of right leg Activity is 50% weight bearing as per orthopedic Dr. Pratt -Patient should make appointment to see Orthopedic Dr. Pratt or his colleagues in 2 weeks [facility] Address: [address] [facility] [address], [place] [address] -Patient should make appointment to see primary medical Dr. Sabrina Garland in 1 week Address: [address] [place] [address] [address], [place] [address] Phone: [facility] PDMP was checked and prior to this hospital stay patient last had tramadol 50 mg tablet filled on on 09/08/18 for 8 day supply. Patient has no other active controlled substances. -Patient may taker acetaminophen 325 mg q6 hours as needed for mild pain Patient may take oxycodone 5mg q8 as needed for moderate pain (12 tablets prescribed) Patient has prescription of trazadone 50 mg qhs for sleep Patient also prescribed sennoside and Miralax to avoid constipation History of L3-S1 lumbar decompression fusion Diabetes Mellitus Type 2 HbA1c is 8.7 Continue Lantus and insulin sliding scale as outpatient Hypertension. Continue losartan Deep venous thrombosis prophylaxis. heparin subcutaneously Full Code Discharge Diagnosis mechanical fall and right distal fibula fracture (nondisplaced, closed fracture), Diabetes Mellitus Type 2 on nursing home current use of insulin, Hypertension Discharge Instructions Patient is to be discharged to physical therapy center [facility] Patient has a Avel Cam walker for support of right leg Activity is 50% weight bearing as per orthopedic Dr. Pratt Patient should make appointment to see Orthopedic Dr. Pratt or his colleagues in 2 weeks [facility] Address: [address] [place] [address], [place] [address] Patient should make appointment to see primary medical Dr. Sabrina Garland in 1 week Address: [address] [place] [address] [address], [place] [address] Phone: [place] PDMP was checked and prior to this hospital stay patient last had tramadol 50 mg tablet filled on on 09/08/18 for 8 day supply. Patient has no other active controlled substances. Patient may taker acetaminophen 325 mg q6 hours as needed for mild pain Patient may take oxycodone 5mg q8 as needed for moderate pain (12 tablets prescribed) Patient has prescription of trazadone 50 mg qhs for sleep Patient also prescribed sennoside and Miralax to avoid constipation Total Time Total Time Spent Total Time Spent (In Minutes): 40 minutes Total Time Includes: Examination of the Patient, Discharge Planning and Medication Reconciliation Discharge Plan Discharge Items Patient Disposition: Transfer Inpatient Rehab Fac Reason For Visit: FALL Discharge Diagnosis: mechanical fall and right distal fibula fracture, Diabetes Mellitus Type 2 on terminal operator current use of insulin, Hypertension Condition: Good Discharge Goals: Improve function Activity: Per 'Additional Instructions' section Non-emergency contact: Primary Care Provider and Surgeon Call non-emergency contact if: you have any medication questions Follow-up/Referrals: Fara Garland [Primary Care Provider] - Diet: Carb Consistent or DM2 Addtl Provider Instructions: Patient is to be discharged to physical therapy center [facility] Patient has a [place] Cam walker for support of right leg Activity is 50% weight bearing as per orthopedic Dr. Pratt Patient should make appointment to see Orthopedic Dr. Pratt or his colleagues in 2 weeks [facility] Address: [address] [facility], [place] [address] Patient should make appointment to see primary medical Dr. Sabrina Garland in 1 week Address: [address] [place] [address] [address], [place] [address] Phone: [place] PDMP was checked and prior to this hospital stay patient last had t ramadol 50 mg tablet filled on on 09/08/18 for 8 day supply. Patient has no other active controlled substances. Patient may taker acetaminophen 325 mg q6 hours as needed for mild pain Patient may take oxycodone 5mg q8 as needed for moderate pain (12 tablets prescribed) Patient has prescription of trazadone 50 mg qhs for sleep Patient also prescribed sennoside and Miralax to avoid constipation Prescriptions: New sennosides [Senokot] 8.6 mg Tablet 8.6 mg PO QAM 30 Days Qty: 30 RF: 0 acetaminophen [Mapap (acetaminophen)] 325 mg Tablet 325 mg PO Q6H PRN (Reason: mild pain) 7 Days Qty: 28 RF: 0 trazodone 50 mg Tablet 50 mg PO HS 30 Days Qty: 30 RF: 0 polyethylene glycol 3350 [Miralax] 17 gram Powder In Packet 17 g PO DAILY PRN (Reason: constipation) 30 Days Qty: 30 RF: 0 oxycodone 5 mg Tablet 5 mg PO Q8H PRN (Reason: moderate pain) 4 Days Qty: 12 RF: 0 Continued Lantus U-100 Insulin 100 unit/mL Solution 48 unit SUBCUT QPM RF: 0 aspirin [Ecotrin Low Strength] 81 mg Tablet,Delayed Release (Dr/Ec) 81 mg PO QPM RF: 0 cyanocobalamin (vitamin B-12) [Vitamin B-12] 2,000 mcg Tablet Extended Release 2,000 mcg PO QAM RF: 0 losartan 100 mg Tablet 100 mg PO QAM RF: 0 dicyclomine 10 mg Capsule 10 mg PO QID PRN (Reason: stomach pain) RF: 0 Novolog Flexpen U-100 Insulin 100 unit/mL Insulin Pen 1 dose subcut TIDM RF: 0 Vitamin D3 4,000 unit Capsule 4,000 unit PO QPM RF: 0 folic acid 1 mg Tablet 1 mg PO QPM RF: 0 gabapentin 600 mg Tablet 600 mg PO TID RF: 0 meloxicam 15 mg Tablet 15 mg PO QAM RF: 0 Discontinued acetaminophen [Acetaminophen Extra Strength] 500 mg Tablet 500 mg PO QDB PRN (Reason: Pain) RF: 0 Stand-Alone Forms: [facility] Discharge Orders: Discharge Order (Routine); Ordered 09/25/18 Ordered By: Carlos Mcbride Skilled Items Patient informed of condition?: Yes DNR: No Discharge Level of Care: Acute rehab Communicable Disease: No Discharge Prognosis: Stable Admission Data Admit Date/Time: 09/24/18 16:29 Attending Provider: Carlos Mcbride Admit Provider: Jared He Primary Care Provider: Fara Garland Other Providers: Jose A Hauser Rajendra P Service: Medical Other Interventions: Discharge Summary Assessment (RN) Last Done: 09/25/18 10:08
[2018-09-25] MEDS ORDERED: TRAZODONE HCL 50 MG TAB PO SCH (21:00)
== END 2018-09-25 10:58 | DRG 563 ==
LOC: ED 21:40 → 3E 21:40

== ENCOUNTER 2023-01-01 15:50 | Inpatient (IN) ==
[2023-01-01] MEDS ORDERED: SODIUM CHLORIDE 0.9% 1000ML 1,000 ML IV ONE (16:10)
--- NOTE | 2023-01-01 16:35 | Electrocardiogram Report ---
Test Reason : Blood Pressure : / mmHG Vent. Rate : 071 BPM Atrial Rate : 071 BPM P-R Int : 188 ms QRS Dur : 090 ms QT Int : 408 ms P-R-T Axes : 043 044 024 degrees QTc Int : 443 ms Normal sinus rhythm Normal ECG When compared with ECG of 15-OCT-2021 07:18, No significant change was found Confirmed by Jeancarlos Wu ([id number] on 01/01/2023 4:35:07 PM Referred By: Confirmed By:Jeancarlos Wu
--- NOTE | 2023-01-01 16:39 | Emergency Department Note ---
Impression & Plan CRAO (central retinal artery occlusion), Hypertension, Elevated troponin, Elevated erythrocyte sedimentation rate, CRP elevated ED Provider Note NAME: HERBERT MORENO AGE: 72 SEX: F ARRIVES VIA: Walk-In INFORMANT: Patient ED PROVIDER(S): Cameron Henao MD CHIEF COMPLAINT: CRAO of left eye, referred PLAN: Disposition: Admit MEDICAL DECISION MAKING: The patient is a pleasant 72-year-old woman with a past medical history of hypertension, type 2 diabetes, peripheral neuropathy who presents to the emergency department referred by ophthalmology for stroke evaluation after being diagnosed with central retinal artery occlusion of her left eye with symptoms that began this morning. The patient describes symptoms that began around 8 AM when waking up where she felt flashes of light and then blurring which turned to a field of emery in her left eye and has been persistent since then. She reports she was seen by her county engineer who diagnosed CRAO and was referred to retina specialist who subsequently performed anterior chamber paracentesis however patient denies any improvement subsequently. She denies any other symptoms including denies dizziness, unsteadiness, difficulty coordination, extremity weakness or trouble speaking. She denies any recent fevers, chills, cough, congestion, GI or symptoms. Patient takes a daily baby aspirin but denies any prior history of stroke or DC. She is not on anticoagulation. On arrival the patient is in no acute distress, afebrile with BP 180s/70s and otherwise stable vital signs. On examination pupils are dilated bilaterally following her recent ophthalmology evaluation. She has no vision in her left eye. EKG without overt acute ischemia. CXR negative for acute cardiopulmonary process. WBC within normal limits. Hemoglobin and platelets within normal limits. Chemistry without metabolic acidosis. Calcium 10.5 and electrolytes otherwise unremarkable. High-sensitivity troponin 19.6, nonspecific. ESR 44 and CRP 0.76, mildly elevated and nonspecific. COVID-19 RNA, EVELIO test was negative. CT of the head and CT of the head and neck were performed and negative for ICH, ischemia or severe narrowing or occlusion of large vessels. Patient agrees with plan for admission for further stroke evaluation. Case was discussed with Zuly Davey, [facility] PAC, with Dr. Chau, [facility] hospitalist who will evaluate the patient for admission. Triage Nursing notes reviewed and agree them. Prior/outside medical records reviewed Vital Signs: reviewed Differential diagnosis: Infection, dehydration, metabolic abnormality, hypo/hyperglycemia, electrolyte disturbance, anemia, hypoxia, cardiac sources, intracerebral event, toxicologic, neurologic, as well as other pathologies. ER treatment provided: See below. Diagnostics interpreted by me: ECG: Normal sinus rhythm, 71 bpm, no ectopy, no overt ST elevation or depression, QTc 443, QRS 90 Cardiac Monitoring: An order for continuous cardiac monitoring was placed and demonstrated Normal sinus rhythm, 71 bpm, no ectopy. Laboratory studies: See below Imaging studies: See below Consultation(s): Case was discussed with Zuly Davey, [facility] PAC, with Dr. Chau, [facility] hospitalist who will evaluate the patient for admission. HPI: The patient is a pleasant 72-year-old woman with a past medical history of hypertension, type 2 diabetes, peripheral neuropathy who presents to the emergency department referred by ophthalmology for stroke evaluation after being diagnosed with central retinal artery occlusion of her left eye with symptoms that began this morning. The patient describes symptoms that began around 8 AM when waking up where she felt flashes of light and then blurring which turned to a field of emery in her left eye and has been persistent since then. She reports she was seen by her county engineer who diagnosed CRAO and was referred to retina specialist who subsequently performed anterior chamber paracentesis however patient denies any improvement subsequently. She denies any other symptoms including denies dizziness, unsteadiness, difficulty coordination, extremity weakness or trouble speaking. She denies any recent fevers, chills, cough, congestion, GI or symptoms. Patient takes a daily baby aspirin but denies any prior history of stroke or DC. She is not on anticoagulation. ROS: See above HPI for pertinent positives & negatives. A total of 10 systems reviewed and were otherwise negative. VITALS:See Below PHYSICAL EXAMINATION: GENERAL: Awake, alert, well-appearing, in no distress HENT: Normocephalic, atraumatic. Oropharynx with dry mucous membranes and otherwise unremarkable. . EYES: Normal conjunctiva. Sclera non-icteric. EOMI. pupils dilated bilaterally following ophthalmologic evaluation. NECK: Supple. No nuchal rigidity. FROM. No JVD. RESPIRATORY: Clear to auscultation. CARDIAC: Regular rate, normal rhythm. Extremities warm and well perfused. Pulses equal. ABDOMEN: Soft, non-distended. No tenderness to palpation. No rebound or guarding. No masses. RECTAL: Deferred. MUSCULOSKELETAL: Chest examination reveals no tenderness. The back is symmetrical on inspection without obvious abnormality. There is no CVA tenderness to palpation. No joint edema. LOWER EXTREMITIES: Calves are equal size bilaterally and non-tender. No edema. No discoloration. NEURO: Left eye vision loss. Otherwise, CN II-XII grossly intact. 5/5 strength and SILT x 4 extremities. Cerebellar function intact including [id number], alternating palms, [id number]. SKIN: No rash or jaundice noted. Cameron Henao MD Past Med/Surg History Medical History Bilateral leg weakness Chronic SI joint pain Diabetes type 2, controlled IDDM Dysesthesia Dyslipidemia Essential tremor Foot drop, right s/p back surgery 2018 Hx of fall Patient reports that she has fallen several tiimes d/t to weakness and nerve issues in left leg (2018) Hypertension Lumbosacral radiculopathy Spinal stenosis compression from L3-L5 Spinal stenosis of lumbar region Surgical History H/O section x2 H/O repair of right rotator cuff History of cholecystectomy History of colonoscopy History of esophagogastroduodenoscopy (EGD) History of total left knee replacement History of total right knee replacement S/P lumbar spinal fusion (~2018) S/P REAGAN-BSO Family History Mother Stroke Breast cancer Mother , in her 80s of a stroke and had hypertension No problems noted. Father , age 85 with a diagnosis of normal pressure hydrocepha laurel Prostate cancer Sister Stroke Family/Other Diabetes Nephrolithiasis Grandmother (Maternal) Cancer MALIGNANT NEOPLASM -UTERUS Social History Smoking Status: Never smoker Second Hand Exposure: No; Do You Dip or Chew Tobacco: No; Hx Alcohol Use: No Hx Substance Use: No Preferred Language: Micronesian Communication Ability: Effective Visual Impairment: Limited Hearing Ability: Normal End Stapler Required: No Beliefs That Will Affect Care: None marital status: Current Living Situation: Spouse current occupational status: retired Other Information That Helps Us Care for You: No other: 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 Feels Safe at Home: Yes Safety Concerns: Feels Safe At This Time Assistive Devices: Cane Allergies Allergies Allergy/AdvReac Type Severity Reaction Status Date / Time allopurinol Allergy Intermediate RASH Verified 01/01/23 17:28 crab Allergy Mild itching Verified 01/01/23 17:28 shellfish derived AdvReac Severe (Lobster) Verified 01/01/23 21:22 N&V scallops AdvReac Intermediate N/V Verified 01/01/23 17:28 lorazepam [From Ativan] AdvReac Mild Hallucinating, Verified 01/01/23 17:28 possible r/t a high dose Home Meds Home Medications Medication Instructions Recorded Confirmed losartan 100 mg tablet 100 mg PO QAM 05/11/18 01/01/23 cyanocobalamin (vitamin B-12) 2,000 mcg PO QAM 02/19/19 01/01/23 2,000 mcg tablet famotidine 20 mg tablet (Pepcid) 20 mg PO BID PRN Heartburn 02/05/21 01/01/23 acetaminophen 500 mg tablet 500 - 1,000 mg PO Q6H PRN Pain 08/13/21 01/01/23 (Tylenol Extra Strength) hydrocodone 5 mg-acetaminophen 300 1 tab PO BID PRN Severe Pain 08/13/21 01/01/23 mg tablet (Scale Score 7-10) cholecalciferol (vitamin D3) 100 2,000 unit PO QPM 08/20/21 01/01/23 mcg (4,000 unit) capsule (Vitamin D3) evolocumab 140 mg/mL subcutaneous 0 mg subcut .[id number] 07/16/22 01/01/23 syringe (Repatha Syringe) aspirin 81 mg tablet,delayed 81 mg PO DAILY 01/01/23 01/01/23 release Previous Rx's Medication Instructions Recorded insulin glargine 100 unit/mL (3 24 unit (0.24 mL) subcut BID #45 mL 07/11/22 mL) subcutaneous pen (Lantus Solostar U-100 Insulin) gabapentin 800 mg tablet 800 mg PO .COMPLEX 90 days #225 07/16/22 tabs insulin aspart U-100 100 unit/mL See Rx Instructions subcut TID #45 07/18/22 (3 mL) subcutaneous pen (Novolog mL FlexPen U-100 Insulin aspart) semaglutide 1 mg/dose (4 mg/3 mL) 0.5 mg (0.375 mL) subcut .COMPLEX 08/19/22 subcutaneous pen injector (Ozempic) #6 mL Results & Data (ED) Vital Signs Vital Signs - 24 hr 01/01/23 15:54 01/01/23 16:19 01/01/23 19:08 Temperature 36.7 C Temperature Source Temporal Artery Scan Pulse Rate 76 74 Pulse Rate [Apical] 74 Respiratory Rate 18 22 Respiratory Effort / Characteristics Non-Labored Non-Labored Spontaneous Respiratory Depth Normal Normal Blood Pressure 186/74 H Blood Pressure [Right Arm] 158/82 H Blood Pressure Mean 111 Blood Pressure Mean [Right Arm] 107 Blood Pressure Position Sitting Pulse Oximetry 97 95 Oxygen Delivery Method Room Air Room Air Sepsis Recent Fever Within 48 Hours No Sepsis New/Unexplained Change in Mental Status No Sepsis Action Taken by Nursing No Action Required Laboratory Data Attestation: I reviewed the patient's lab results. 01/01/23 16:20 01/01/23 16:20 Lab Results 01/01/23 01/01/23 01/01/23 Range/Units 16:20 16:20 16:20 WBC 6.13 (4.8-10.8) K/ul RBC 3.96 L (4.20-5.40) M/uL Hgb 12.5 (12.0-16.0) g/dl Hct 36.3 L (37.0-47.0) % MCV 91.7 (80.0-100.0) fL MCH 31.6 (25.0-34.0) pg MCHC 34.4 (32.0-36.0) g/dL RDW Std Deviation 43.8 (36.4-46.3) fL RDW Coeff of Gold 13.0 (11.5-14.5) % Plt Count 230 (130-400) K/uL MPV 10.5 (9.4-12.4) fL Immature Gran % (Auto) 0.3 % Neut % (Auto) 64.3 % Lymph % (Auto) 25.1 % Wells % (Auto) 7.2 % Eos % (Auto) 2.6 % Baso % (Auto) 0.5 % Neut # (Auto) 3.94 (1.40-6.50) K/uL Lymph # (Auto) 1.54 (1.2-3.4) K/uL Wells # (Auto) 0.44 (0.11-0.59) K/uL Eos # (Auto) 0.16 (0-0.50) K/uL Baso # (Auto) 0.03 (0-0.2) K/uL Immature Gran # (Auto) 0.02 (0.01-0.20) K/uL ESR (0-30) mm/hr PT 10.9 (9.0-12.0) Seconds INR 1.0 (0.9-1.1) APTT 26.3 (21.0-31.0) Seconds PTT Ratio 0.9 Sodium 139 (136-145) mmol/L Potassium 4.1 (3.5-5.1) mmol/L Chloride 102 (98-107) mmol/L Carbon Dioxide 31 (21-32) mmol/L Anion Gap 6 (3-11) BUN 18 (6-23) mg/dl Creatinine 0.96 (0.6-1.2) mg/dl Est Cr Clr Drug Dosing Not Reportable Est GFR ( Amer) 67.5 ml/min Est GFR (Non-Af Amer) 58.3 ml/min BUN/Creatinine Ratio 18.8 (10-20) Glucose 102 H (70-99(Fasting)) mg/dl Calcium 10.5 H (8.6-10.3) mg/dl Magnesium 1.9 (1.7-2.4) mg/dl Total Bilirubin 0.4 (0.2-1.0) mg/dl AST 25 (13-39) U/L ALT 24 (7-52) U/L Alkaline Phosphatase 75 (34-104) U/L Troponin I High Sens 19.6 H (0-14) pg/ml C-Reactive Protein 0.76 H (0-0.5) mg/dl Total Protein 8.1 (6.0-8.3) gm/dl Albumin 4.4 (3.4-5.0) gm/dl Globulin 3.7 (2.5-4.0) gm/dl Albumin/Globulin Ratio 1.2 (0.9-2) SARS-CoV-2, RNA, NAAT (NEGATIVE) 01/01/23 01/01/23 Range/Units 16:20 18:38 WBC (4.8-10.8) K/ul RBC (4.20-5.40) M/uL Hgb (12.0-16.0) g/dl Hct (37.0-47.0) % MCV (80.0-100.0) fL MCH (25.0-34.0) pg MCHC (32.0-36.0) g/dL RDW Std Deviation (36.4-46.3) fL RDW Coeff of Gold (11.5-14.5) % Plt Count (130-400) K/uL MPV (9.4-12.4) fL Immature Gran % (Auto) % Neut % (Auto) % Lymph % (Auto) % Wells % (Auto) % Eos % (Auto) % Baso % (Auto) % Neut # (Auto) (1.40-6.50) K/uL Lymph # (Auto) (1.2-3.4) K/uL Wells # (Auto) (0.11-0.59) K/uL Eos # (Auto) (0-0.50) K/uL Baso # (Auto) (0-0.2) K/uL Immature Gran # (Auto) (0.01-0.20) K/uL ESR 44 H (0-30) mm/hr PT (9.0-12.0) Seconds INR (0.9-1.1) APTT (21.0-31.0) Seconds PTT Ratio Sodium (136-145) mmol/L Potassium (3.5-5.1) mmol/L Chloride (98-107) mmol/L Carbon Dioxide (21-32) mmol/L Anion Gap (3-11) BUN (6-23) mg/dl Creatinine (0.6-1.2) mg/dl Est Cr Clr Drug Dosing Est GFR ( Amer) ml/min Est GFR (Non-Af Amer) ml/min BUN/Creatinine Ratio (10-20) Glucose (70-99(Fasting)) mg/dl Calcium (8.6-10.3) mg/dl Magnesium (1.7-2.4) mg/dl Total Bilirubin (0.2-1.0) mg/dl AST (13-39) U/L ALT (7-52) U/L Alkaline Phosphatase (34-104) U/L Troponin I High Sens (0-14) pg/ml C-Reactive Protein (0-0.5) mg/dl Total Protein (6.0-8.3) gm/dl Albumin (3.4-5.0) gm/dl Globulin (2.5-4.0) gm/dl Albumin/Globulin Ratio (0.9-2) SARS-CoV-2, RNA, NAAT NEGATIVE (NEGATIVE) Administered Medications Aspirin (Aspirin 81 Mg Ectab) 81 mg PO HS TODD Stop: 01/31/23 21:59 Last Admin: 01/02/23 00:00 Dose: 81 mg Documented By: HFS Gabapentin (Gabapentin 800 Mg Tab) 800 mg PO BID TODD Stop: 01/31/23 21:12 Last Admin: 01/02/23 08:42 Dose: 800 mg Documented By: LUIS A Admin: 01/01/23 21:49 Dose: 800 mg Documented By: KANDICE Heparin Sodium (Porcine) (Heparin Sod 5,000 Unit/0.5 Ml Vial) 5,000 units SQ Q8 TODD Stop: 01/31/23 21:59 Last Admin: 01/02/23 13:09 Dose: 5,000 units Documented By: LUIS A Admin: 01/02/23 06:04 Dose: 5,000 units Documented By: Admin: 01/01/23 21:53 Dose: 5,000 units Documented By: KANDICE Sodium Chloride (Nss 1000ml) 1,000 mls @ 80 mls/hr IV .[id number] TODD Stop: 02/01/23 12:29 Last Admin: 01/02/23 13:08 Dose: 80 mls/hr Documented By: LUIS A Insulin Aspart (Insulin Aspart Per Unit Charge) 0 units SC ACHS TODD Stop: 01/31/23 20:59 Last Admin: 01/02/23 12:19 Dose: 4 units Documented By: LUIS A Co-signed By: CORDELL Admin: 01/02/23 08:27 Dose: 2 units Documented By: LUIS A Co-signed By: CORDELL Admin: 01/01/23 22:05 Dose: Not Given Documented By: HFS Insulin Glargine (Lantus Per Unit Charge) 15 units SQ BID TODD Stop: 01/31/23 21:12 Last Admin: 01/02/23 08:28 Dose: 15 units Documented By: LUIS A Co-signed By: CORDELL Admin: 01/01/23 23:56 Dose: 15 units Documented By: KANDICE Co-signed By: CARMEN Losartan Potassium (Losartan Potassium 50 Mg Tab) 100 mg PO QAM TODD Stop: 02/01/23 08:59 Last Admin: 01/02/23 08:42 Dose: 100 mg Documented By: LUIS A Vitamin D (Cholecalciferol 1,000 Units 25 Mcg Tab) 2,000 units PO QPM TODD Stop: 01/31/23 21:12 Last Admin: 01/01/23 21:49 Dose: 2,000 units Documented By: KANDICE Discontinued Medications Clopidogrel Bisulfate (Clopidogrel Bisulfate 75 Mg Tab) 75 mg PO NOW ONE Stop: 01/02/23 12:25 Last Admin: 01/02/23 13:08 Dose: 75 mg Documented By: LUIS A Sodium Chloride (Nss 1000ml) 1,000 mls @ 999 mls/hr IV .[id number] ONE Stop: 01/01/23 17:10 Last Infusion: 01/01/23 17:38 Dose: 0 mls/hr Documented By: Admin: 01/01/23 16:41 Dose: 999 mls/hr Documented By: KAJAL Ioversol (Optiray 320 125ml) 119 ml IV ONCE ONE Stop: 01/01/23 18:10 Last Admin: 01/01/23 18:10 Dose: 119 ml Documented By: ELIEZER Lorazepam (Lorazepam 2 Mg/1 Ml Vial) 0.5 mg IV ONE PRN PRN Reason: prior to MRI Last Admin: 01/01/23 23:57 Dose: 0.5 mg Documented By: KANDICE Imaging Data Radiologist's Impression: Chest X-Ray 01/01/23 16:11 XR chest 1V portable CLINICAL HISTORY: stroke symptoms, vision changes TECHNIQUE: Single frontal radiograph of the chest was obtained. Comparison: Comparison is made to chest radiograph 05/27/2018 FINDINGS: No lines and tubes are seen. The cardiomediastinal silhouette is normal. Minimal linear densities in the left lower lung compatible with atelectasis. No evidence of pleural effusion or pneumothorax. IMPRESSION: No acute chest disease. ACT 112: Negative or not required by law. Electronically signed by: Von Pyle M.D. 01/01/2023 5:[address] 01/01/23 16:11 CT angio head w con, CT head/brain wo con CLINICAL HISTORY: stroke symptoms, transient vision loss TECHNIQUE: Contiguous axial CT images of the head were acquired from the base of the skull to the vertex without intravenous contrast administration. CT angiography of the head and neck was performed following intravenous administration of iodinated contrast. Coronal and sagittal MIPS were obtained from the axial data set and were submitted for review. Automated dose lowering techniques and/or adjustment according to patient size were utilized for this examination. All measurements were calculated based on NASCET criteria. Comparison: None available at the time of this dictation. FINDINGS: CT head: There is no acute intracranial hemorrhage or evidence of acute territorial infarction. No shift of the midline structures, mass effect, or extra-axial abnormalities are shown. Small thyroid nodules are seen which do not require follow-up by ACR criteria. CTA Neck: A 3 vessel aortic arch is shown. There is no significant atherosclerotic plaque in the aortic arch or the origins of the innominate, left common carotid, and left subclavian arteries. The common carotid, external carotid, cervical segments of the internal carotid arteries, and the cervical segments of the vertebral arteries are patent without hemodynamically significant stenosis. The left vertebral artery is dominant. CTA Head: The anterior and posterior cerebral circulations are patent. origin of the right posterior cerebral artery is seen. IMPRESSION: 1. No acute intracranial hemorrhage, evidence of acute territorial infarction, or other acute intracranial disease process. 2. No occlusion, hemodynamically significant stenosis, or dissection in the major cervical arteries. 3. No occlusion, hemodynamically significant stenosis, aneurysm, dissection, or arteriovenous malformation in the major intracranial arteries. Assessment of stenosis of the internal carotid arteries is based on NASCET criteria. ACT 112: Negative or not required by law. Electronically signed by: Von Pyle M.D. 01/01/2023 6:49 PM Head CTA 01/01/23 16:11 CT angio head w con, CT head/brain wo con CLINICAL HISTORY: stroke symptoms, transient vision loss TECHNIQUE: Contiguous axial CT images of the head were acquired from the base of the skull to the vertex without intravenous contrast administration. CT angiography of the head and neck was performed following intravenous administration of iodinated contrast. Coronal and sagittal MIPS were obtained from the axial data set and were submitted for review. Automated dose lowering techniques and/or adjustment according to patient size were utilized for this examination. All measurements were calculated based on NASCET criteria. Comparison: None available at the time of this dictation. FINDINGS: CT head: There is no acute intracranial hemorrhage or evidence of acute territorial infarction. No shift of the midline structures, mass effect, or extra-axial abnormalities are shown. Small thyroid nodules are seen which do not require follow-up by ACR criteria. CTA Neck: A 3 vessel aortic arch is shown. There is no significant atherosclerotic plaque in the aortic arch or the origins of the innominate, left common carotid, and left subclavian arteries. The common carotid, external carotid, cervical segments of the internal carotid arteries, and the cervical segments of the vertebral arteries are patent without hemodynamically significant stenosis. The left vertebral artery is dominant. CTA Head: The anterior and posterior cerebral circulations are patent. origin of the right posterior cerebral artery is seen. IMPRESSION: 1. No acute intracranial hemorrhage, evidence of acute territorial infarction, or other acute intracranial disease process. 2. No occlusion, hemodynamically significant stenosis, or dissection in the major cervical arteries. 3. No occlusion, hemodynamically significant stenosis, aneurysm, dissection, or arteriovenous malformation in the major intracranial arteries. Assessment of stenosis of the internal carotid arteries is based on NASCET criteria. ACT 112: Negative or not required by law. Electronically signed by: Von Pyle M.D. 01/01/2023 6:49 PM Neck CTA 01/01/23 16:11 CT angio neck with con CLINICAL HISTORY: stroke symptoms, transient vision loss TECHNIQUE: Contiguous axial CT images of the head were acquired from the base of the skull to the vertex without intravenous contrast administration. CT angiography of the head and neck was performed following intravenous administra tion of iodinated contrast. Coronal and sagittal MIPS were obtained from the axial data set and were submitted for review. Automated dose lowering techniques and/or adjustment according to patient size were utilized for this examination. All measurements were calculated based on NASCET criteria. Comparison: None available at the time of this dictation. FINDINGS: CT head: There is no acute intracranial hemorrhage or evidence of acute territorial infarction. No shift of the midline structures, mass effect, or extra-axial abnormalities are shown. Small thyroid nodules are seen which do not require follow-up by ACR criteria. CTA Neck: A 3 vessel aortic arch is shown. There is no significant atherosclerotic plaque in the aortic arch or the origins of the innominate, left common carotid, and left subclavian arteries. The common carotid, external carotid, cervical segments of the internal carotid arteries, and the cervical segments of the vertebral arteries are patent without hemodynamically significant stenosis. The left vertebral artery is dominant. CTA Head: The anterior and posterior cerebral circulations are patent. origin of the right posterior cerebral artery is seen. IMPRESSION: 1. No acute intracranial hemorrhage, evidence of acute territorial infarction, or other acute intracranial disease process. 2. No occlusion, hemodynamically significant stenosis, or dissection in the major cervical arteries. 3. No occlusion, hemodynamically significant stenosis, aneurysm, dissection, or arteriovenous malformation in the major intracranial arteries. Assessment of stenosis of the internal carotid arteries is based on NASCET criteria. ACT 112: Negative or not required by law. Electronically signed by: Von Pyle M.D. 01/01/2023 6:45 PM Discharge Plan Visit Data Chief Complaint: Illness Stated Complaint: COMING FROM EYE DOCTOR, NEEDS TESTS DONE ED Provider: Cameron Henao Discharge Problem: CRAO (central retinal artery occlusion), Hypertension, Elevated troponin, Elevated erythrocyte sedimentation rate, CRP elevated Patient Disposition: Admitted As Inpatient Discharge Instructions Interventions: ED Discharge Assessment Last Done: 01/01/23 20:40
[2023-01-01 16:51] LABS: Basophils # (auto) 0.03 K/uL (0-0.2); Basophils % (auto) 0.5 %; Eosinophils # (auto) 0.16 K/uL (0-0.50); Eosinophils % (auto) 2.6 %; Hematocrit (blood only) 36.3 % (37.0-47.0); Hemoglobin 12.5 g/dl (12.0-16.0); Immature Granulocytes # (auto) 0.02 K/uL (0.01-0.20); Immature Granulocytes % (auto) 0.3 %; Lymphocytes # (auto) 1.54 K/uL (1.2-3.4); Lymphocytes % (auto) 25.1 %; Mean Corpuscular Hemoglobin 31.6 pg (25.0-34.0); Mean Corpuscular Hgb Conc 34.4 g/dL (32.0-36.0); Mean Corpuscular Volume 91.7 fL (80.0-100.0); Mean Platelet Volume 10.5 fL (9.4-12.4); Monocytes # (auto) 0.44 K/uL (0.11-0.59); Monocytes % (auto) 7.2 %; Neutrophils # (auto) 3.94 K/uL (1.40-6.50); Neutrophils % (auto) 64.3 %; Platelet Count 230 K/uL (130-400); RDW Standard Deviation 43.8 fL (36.4-46.3); Red Blood Count 3.96 M/uL (4.20-5.40); White Blood Count 6.13 K/ul (4.8-10.8)
[2023-01-01 16:56] LABS: Alanine Aminotransferase 24 U/L (7-52); Albumin Globulin Ratio 1.2 (0.9-2); Albumin Level 4.4 gm/dl (3.4-5.0); Alkaline Phosphatase 75 U/L (34-104); Anion Gap 6 (3-11); Aspartate Aminotransferase 25 U/L (13-39); BUN Creatinine Ratio 18.8 (10-20); Bilirubin,Total 0.4 mg/dl (0.2-1.0); Blood Urea Nitrogen 18 mg/dl (6-23); Calcium 10.5 mg/dl (8.6-10.3); Carbon Dioxide 31 mmol/L (21-32); Chloride 102 mmol/L (98-107); Est GFR (African American) 67.5 ml/min; Est GFR (Non-African American) 58.3 ml/min; Globulin 3.7 gm/dl (2.5-4.0); Glucose 102 mg/dl (70-99(Fasting)); Magnesium 1.9 mg/dl (1.7-2.4); Potassium 4.1 mmol/L (3.5-5.1); Sodium 139 mmol/L (136-145); Total Protein 8.1 gm/dl (6.0-8.3)
[2023-01-01 17:03] LABS: Troponin I High Sensitivity 19.6 pg/ml (0-14)
[2023-01-01 17:06] LABS: Partial Thromboplastin Ratio 0.9; Partial Thromboplastin Time 26.3 Seconds (21.0-31.0); Prothrombin Time 10.9 Seconds (9.0-12.0)
--- NOTE | 2023-01-01 17:10 | XRay Report ---
XR chest 1V portable CLINICAL HISTORY: stroke symptoms, vision changes TECHNIQUE: Single frontal radiograph of the chest was obtained. Comparison: Comparison is made to chest radiograph 05/27/2018 FINDINGS: No lines and tubes are seen. The cardiomediastinal silhouette is normal. Minimal linear densities in the left lower lung compatible with atelectasis. No evidence of pleural effusion or pneumothorax. IMPRESSION: No acute chest disease. ACT 112: Negative or not required by law. Electronically signed by: Von Pyle M.D. 01/01/2023 5:08 PM
[2023-01-01 18:09] LABS: C Reactive Protein 0.76 mg/dl (0-0.5)
[2023-01-01] MEDS ORDERED: OPTIRAY 320 125ml IV ONE (18:09)
--- NOTE | 2023-01-01 18:50 | CT Scan Report ---
CT angio head w con, CT head/brain wo con CLINICAL HISTORY: stroke symptoms, transient vision loss TECHNIQUE: Contiguous axial CT images of the head were acquired from the base of the skull to the gianfranco natalie without intravenous contrast administration. CT angiography of the head and neck was performed f ollowing intravenous administration of iodinated contrast. Coronal and sagittal MIPS were obtained fr om the axial data set and were submitted for review. Automated dose lowering techniques and/or adjus tment according to patient size were utilized for this examination. All measurements were calculated based on NASCET criteria. Comparison: None available at the time of this dictation. FINDINGS: CT head: There is no acute intracranial hemorrhage or evidence of acute territorial infarction. No sh ift of the midline structures, mass effect, or extra-axial abnormalities are shown. Small thyroid nodules are seen which do not require follow-up by ACR criteria. CTA Neck: A 3 vessel aortic arch is shown. There is no significant atherosclerotic plaque in the aor tic arch or the origins of the innominate, left common carotid, and left subclavian arteries. The co mmon carotid, external carotid, cervical segments of the internal carotid arteries, and the cervical segments of the vertebral arteries are patent without hemodynamically significant stenosis. The left vertebral artery is dominant. CTA Head: The anterior and posterior cerebral circulations are patent. origin of the right pos terior cerebral artery is seen. IMPRESSION: 1. No acute intracranial hemorrhage, evidence of acute territorial infarction, or other acute intrac ranial disease process. 2. No occlusion, hemodynamically significant stenosis, or dissection in the major cervical arteries. 3. No occlusion, hemodynamically significant stenosis, aneurysm, dissection, or arteriovenous malfor mation in the major intracranial arteries. Assessment of stenosis of the internal carotid arteries is based on NASCET criteria. ACT 112: Negative or not required by law. Electronically signed by: Von Pyle M.D. 01/01/2023 6:49 PM
[2023-01-01] MEDS ORDERED: GLUCOSE 10 TAB/TUBE PO PRN (20:09)
[2023-01-01] MEDS ORDERED: GLUCAGON FOR INJ 1 MG VIAL SQ PRN (20:09)
[2023-01-01] MEDS ORDERED: CARBOHYDRATES FOR HYPOGLYCEMIA PO PRN (20:09)
[2023-01-01] MEDS ORDERED: GLUCOSE 40% GEL 15 GM TUBE PO PRN (20:09)
[2023-01-01] MEDS ORDERED: DEXTROSE 50% 50 ML SYRINGE IV PRN (20:09)
--- NOTE | 2023-01-01 20:11 | History & Physical Report ---
Date of Service January 01, 2023 Assessment & Plan (1) Stroke-like symptom: Plan: 72 years old female was sent to the ED from ophthalmology office for work up of stroke for possible retinal artery occlusion CT head/CTA head and neck showed no acute intracranial finding Will get MRI brain- patient is asking to completely sedate her for the MRI brain Reviewed her chart showed that she had multiple MRI done where Ativan was given for the MRI She said that she had outpatient MRI done few months ago where she had Valium that did not help her for the MRI She will try to get the MRI with Ativan to be given prior to the MRI Will get an echocardiogram Will consult neurology PT/OT/Speech eval as per stroke protocol Will check Lipid panel, TSH and Hba1c Will continue monitor in telemetry for any arrhythmia Elevated Troponin Trop mildly elevated Denies any chest pain EKG showed no acute ichemic changes Will trend troponin Continue aspirin Will repeat EKG in am and echo ordered DM type 2 (diabetes mellitus, type 2) Will check Hba1c On Lantus 24 units BID and Semaglutide home dose Will do Lantus 15 units BID while inpatient since pt has not eaten much today Insulin sliding scale Continue monitor BS Hypertension Continue losartan stable Hyperlipidemia: On Evolocumab [id number] Will hold while inpatient DVT px on heparin subq Code status Full code History of Present Illness Chief Complaint: Stroke like symptoms Primary Care Provider: Fara Garland 72 yo Female with PMH of diabetes, hypertension, past tobacco abuse, Spinal stenosis of lumbar region, S/P lumbar spinal fusion, diabetic neuropathy was sent to the ER from ophthalmology office to eval for work up of stroke. Pt said early today she felt a floater in her left eye. She said that she is having difficulty to see in her left eye where she noted a romero color like a shadow in her vision. She went to her Ophthalmology and a retinal specialist that attempted to release the pressure behind her eyes that was unsuccessful. Her ophthalmology sent her to the ER to get stroke work up for possible renal artery occlusion. Pt denies any other neurology symptoms such as slurred speech, numbness, weakness. Pt said that she does not think that she can get an MRI without completely sedating her. She denies any chest pain, palpitation, dizziness, SOB, fever and chills. Allergies Allergy/AdvReac Type Severity Reaction Status Date / Time allopurinol Allergy Intermediate RASH Verified 01/01/23 17:28 crab Allergy Mild itching Verified 01/01/23 17:28 shellfish derived AdvReac Severe (Lobster) Verified 01/01/23 21:22 N&V scallops AdvReac Intermediate N/V Verified 01/01/23 17:28 lorazepam [From Ativan] AdvReac Mild Hallucinating, Verified 01/01/23 17:28 possible r/t a high dose Home Medications Medication Instructions Recorded Confirmed Type losartan 100 mg tablet 100 mg PO QAM 05/11/18 01/01/23 History cyanocobalamin (vitamin B-12) 2,000 mcg PO QAM 02/19/19 01/01/23 History 2,000 mcg tablet famotidine 20 mg tablet (Pepcid) 20 mg PO BID PRN Heartburn 02/05/21 01/01/23 History acetaminophen 500 mg tablet 500 - 1,000 mg PO Q6H PRN Pain 08/13/21 01/01/23 History (Tylenol Extra Strength) hydrocodone 5 mg-acetaminophen 300 1 tab PO BID PRN Severe Pain 08/13/21 01/01/23 History mg tablet (Scale Score 7-10) cholecalciferol (vitamin D3) 100 2,000 unit PO QPM 08/20/21 01/01/23 History mcg (4,000 unit) capsule (Vitamin D3) insulin glargine 100 unit/mL (3 24 unit (0.24 mL) subcut BID #45 mL 07/11/22 01/01/23 Rx mL) subcutaneous pen (Lantus Solostar U-100 Insulin) evolocumab 140 mg/mL subcutaneous 0 mg subcut .[id number] 07/16/22 01/01/23 History syringe (Repatha Syringe) gabapentin 800 mg tablet 800 mg PO .COMPLEX 90 days #225 07/16/22 01/01/23 Rx tabs insulin aspart U-100 100 unit/mL See Rx Instructions subcut TID #45 07/18/22 01/01/23 Rx (3 mL) subcutaneous pen (Novolog mL FlexPen U-100 Insulin aspart) semaglutide 1 mg/dose (4 mg/3 mL) 0.5 mg (0.375 mL) subcut .COMPLEX 08/19/22 01/01/23 Rx subcutaneous pen injector (Ozempic) #6 mL aspirin 81 mg tablet,delayed 81 mg PO DAILY 01/01/23 01/01/23 History release Past Med/Surg History Medical History Bilateral leg weakness Chronic SI joint pain Diabetes type 2, controlled IDDM Dysesthesia Dyslipidemia Essential tremor Foot drop, right s/p back surgery 2018 Hx of fall Patient reports that she has fallen several tiimes d/t to weakness and nerve issues in left leg (2018) Hypertension Lumbosacral radiculopathy Spinal stenosis compression from L3-L5 Spinal stenosis of lumbar region Surgical History H/O section x2 H/O repair of right rotator cuff History of cholecystectomy History of colonoscopy History of esophagogastroduodenoscopy (EGD) History of total left knee replacement History of total right knee replacement S/P lumbar spinal fusion (~2017) S/P REAGAN-BSO Family History Mother Stroke Breast cancer Mother , in her 80s of a stroke and had hypertension No problems noted. Father , age 85 with a diagnosis of normal pressure hydrocephalus Prostate cancer Sister Stroke Family/Other Diabetes Nephrolithiasis Grandmother (Maternal) Cancer MALIGNANT NEOPLASM -UTERUS Social History Smoking Status: Never smoker Second Hand Exposure: No; Do You Dip or Chew Tobacco: No; Hx Alcohol Use: No Hx Substance Use: No Preferred Language: Irish Communication Ability: Effective Visual Impairment: Limited Hearing Ability: Normal Destination Sign Repairer Required: No Beliefs That Will Affect Care: None marital status: Current Living Situation: Spouse current occupational status: retired Other Information That Helps Us Care for You: No other: 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 Feels Safe at Home: Yes Safety Concerns: Feels Safe At This Time Assistive Devices: Cane Review of Systems Review of Systems: All systems reviewed & are unremarkable except as noted in HPI & below Physical Exam Physical Exam: General- No acute distress Head- atraumatic Eyes- pupils dilated and symmetry, EOMI, unable to detect the light when shined in her left eye ENT- oropharynx clear Neck- supple, no JVD Lungs- clear to auscultation Heart- regular rhythm; no murmur Abdomen- normal bowel sounds, soft, nontender Extremities- no calf tenderness Neuro- alert, oriented x 3; EOMI; no facial palsy; no dysarthria, no tremors, normal strength Skin- warm & dry Results & Data Results & Data Vital Signs (Past 12 Hours) Vital Signs Temp Pulse Pulse Resp BP BP Pulse Ox 01/01/23 19:08 74 22 158/82 H 95 01/01/23 16:19 74 01/01/23 15:54 36.7 C 76 18 186/74 H 97 O2 Del Method 01/01/23 19:08 Room Air 01/01/23 16:19 01/01/23 15:54 Room Air Diagnostic Findings Laboratory Results WBC 6.13 K/ul (4.8-10.8) 01/01/23 16:20 RBC 3.96 M/uL (4.20-5.40) L 01/01/23 16:20 Hgb 12.5 g/dl (12.0-16.0) 01/01/23 16:20 Hct 36.3 % (37.0-47.0) L 01/01/23 16:20 MCV 91.7 fL (80.0-100.0) 01/01/23 16:20 MCH 31.6 pg (25.0-34.0) 01/01/23 16:20 MCHC 34.4 g/dL (32.0-36.0) 01/01/23 16:20 RDW Std Deviation 43.8 fL (36.4-46.3) 01/01/23 16:20 RDW Coeff of Gold 13.0 % (11.5-14.5) 01/01/23 16:20 Plt Count 230 K/uL (130-400) 01/01/23 16:20 MPV 10.5 fL (9.4-12.4) 01/01/23 16:20 Immature Gran % (Auto) 0.3 % 01/01/23 16:20 Neut % (Auto) 64.3 % 01/01/23 16:20 Lymph % (Auto) 25.1 % 01/01/23 16:20 [place] % (Auto) 7.2 % 01/01/23 16:20 Eos % (Auto) 2.6 % 01/01/23 16:20 Baso % (Auto) 0.5 % 01/01/23 16:20 Neut # (Auto) 3.94 K/uL (1.40-6.50) 01/01/23 16:20 Lymph # (Auto) 1.54 K/uL (1.2-3.4) 01/01/23 16:20 [place] # (Auto) 0.44 K/uL (0.11-0.59) 01/01/23 16:20 Eos # (Auto) 0.16 K/uL (0-0.50) 01/01/23 16:20 Baso # (Auto) 0.03 K/uL (0-0.2) 01/01/23 16:20 Immature Gran # (Auto) 0.02 K/uL (0.01-0.20) 01/01/23 16:20 ESR 44 mm/hr (0-30) H 01/01/23 16:20 PT 10.9 Seconds (9.0-12.0) 01/01/23 16:20 INR 1.0 (0.9-1.1) 01/01/23 16:20 APTT 26.3 Seconds (21.0-31.0) 01/01/23 16:20 PTT Ratio 0.9 01/01/23 16:20 Sodium 139 mmol/L (136-145) 01/01/23 16:20 Potassium 4.1 mmol/L (3.5-5.1) 01/01/23 16:20 Chloride 102 mmol/L (98-107) 01/01/23 16:20 Carbon Dioxide 31 mmol/L (21-32) 01/01/23 16:20 Anion Gap 6 (3-11) 01/01/23 16:20 BUN 18 mg/dl (6-23) 01/01/23 16:20 Creatinine 0.96 mg/dl (0.6-1.2) 01/01/23 16:20 Est Cr Clr Drug Dosing Not Reportable 01/01/23 16:20 Est GFR ( Amer) 67.5 ml/min 01/01/23 16:20 Est GFR (Non-Af Amer) 58.3 ml/min 01/01/23 16:20 BUN/Creatinine Ratio 18.8 (10-20) 01/01/23 16:20 Glucose 102 mg/dl (70-99(Fasting)) H 01/01/23 16:20 POC Glucose 132 mg/dl (70-99) H 01/01/23 22:04 Calcium 10.5 mg/dl (8.6-10.3) H 01/01/23 16:20 Magnesium 1.9 mg/dl (1.7-2.4) 01/01/23 16:20 Total Bilirubin 0.4 mg/dl (0.2-1.0) 01/01/23 16:20 AST 25 U/L (13-39) 01/01/23 16:20 ALT 24 U/L (7-52) 01/01/23 16:20 Alkaline Phosphatase 75 U/L (34-104) 01/01/23 16:20 Troponin I High Sens 19.6 pg/ml (0-14) H 01/01/23 16:20 C-Reactive Protein 0.76 mg/dl (0-0.5) H 01/01/23 16:20 Total Protein 8.1 gm/dl (6.0-8.3) 01/01/23 16:20 Albumin 4.4 gm/dl (3.4-5.0) 01/01/23 16:20 Globulin 3.7 gm/dl (2.5-4.0) 01/01/23 16:20 Albumin/Globulin Ratio 1.2 (0.9-2) 01/01/23 16:20 SARS-CoV-2, RNA, NAAT NEGATIVE (NEGATIVE) 01/01/23 18:38 Impressions Chest X-Ray 01/01/23 16:11 XR chest 1V portable CLINICAL HISTORY: stroke symptoms, vision changes TECHNIQUE: Single frontal radiograph of the chest was obtained. Comparison: Comparison is made to chest radiograph 05/27/2018 FINDINGS: No lines and tubes are seen. The cardiomediastinal silhouette is normal. Minimal linear densities in the left lower lung compatible with atelectasis. No evidence of pleural effusion or pneumothorax. IMPRESSION: No acute chest disease. ACT 112: Negative or not required by law. Electronically signed by: Von Pyle M.D. 01/01/2023 5:[address] 01/01/23 16:11 CT angio head w con, CT head/brain wo con CLINICAL HISTORY: stroke symptoms, transient vision loss TECHNIQUE: Contiguous axial CT images of the head were acquired from the base of the skull to the vertex without intravenous contrast administration. CT angiography of the head and neck was performed following intravenous administration of iodinated contrast. Coronal and sagittal MIPS were obtained from the axial data set and were submitted for review. Automated dose lowering techniques and/or adjustment according to patient size were utilized for this examination. All measurements were calculated based on NASCET criteria. Comparison: None available at the time of this dictation. FINDINGS: CT head: There is no acute intracranial hemorrhage or evidence of acute territorial infarction. No shift of the midline structures, mass effect, or extra-axial abnormalities are shown. Small thyroid nodules are seen which do not require follow-up by ACR criteria. CTA Neck: A 3 vessel aortic arch is shown. There is no significant atherosclerotic plaque in the aortic arch or the origins of the innominate, left common carotid, and left subclavian arteries. The common carotid, external carotid, cervical segments of the internal carotid arteries, and the cervical segments of the vertebral arteries are patent without hemodynamically significant stenosis. The left vertebral artery is dominant. CTA Head: The anterior and posterior cerebral circulations are patent. origin of the right posterior cerebral artery is seen. IMPRESSION: 1. No acute intracranial hemorrhage, evidence of acute territorial infarction, or other acute intracranial disease process. 2. No occlusion, hemodynamically significant stenosis, or dissection in the major cervical arteries. 3. No occlusion, hemodynamically significant stenosis, aneurysm, dissection, or arteriovenous malformation in the major intracranial arteries. Assessment of stenosis of the internal carotid arteries is based on NASCET criteria. ACT 112: Negative or not required by law. Electronically signed by: Von Pyle M.D. 01/01/2023 6:49 PM Head CTA 01/01/23 16:11 CT angio head w con, CT head/brain wo con CLINICAL HISTORY: stroke symptoms, transient vision loss TECHNIQUE: Contiguous axial CT images of the head were acquired from the base of the skull to the vertex without intravenous contrast administration. CT angiography of the head and neck was performed following intravenous administration of iodinated contrast. Coronal and sagittal MIPS were obtained from the axial data set and were submitted for review. Automated dose lowering techniques and/or adjustment according to patient size were utilized for this examination. All measurements were calculated based on NASCET criteria. Comparison: None available at the time of this dictation. FINDINGS: CT head: There is no acute intracranial hemorrhage or evidence of acute territorial infarction. No shift of the midline structures, mass effect, or extra-axial abnormalities are shown. Small thyroid nodules are seen which do not require follow-up by ACR criteria. CTA Neck: A 3 vessel aortic arch is shown. There is no significant atherosclerotic plaque in the aortic arch or the origins of the innominate, left common carotid, and left subclavian arteries. The common carotid, external carotid, cervical segments of the internal carotid arteries, and the cervical segments of the vertebral arteries are patent without hemodynamically significant stenosis. The left vertebral artery is dominant. CTA Head: The anterior and posterior cerebral circulations are patent. origin of the right posterior cerebral artery is seen. IMPRESSION: 1. No acute intracranial hemorrhage, evidence of acute territorial infarction, or other acute intracranial disease process. 2. No occlusion, hemodynamically significant stenosis, or dissection in the major cervical arteries. 3. No occlusion, hemodynamically significant stenosis, aneurysm, dissection, or arteriovenous malformation in the major intracranial arteries. Assessment of stenosis of the internal carotid arteries is based on NASCET criteria. ACT 112: Negative or not required by law. Electronically signed by: Von Pyle M.D. 01/01/2023 6:49 PM Neck CTA 01/01/23 16:11 CT angio neck with con CLINICAL HISTORY: stroke symptoms, transient vision loss TECHNIQUE: Contiguous axial CT images of the head were acquired from the base of the skull to the vertex without intravenous contrast administration. CT angiography of the head and neck was performed following intravenous administration of iodinated contrast. Coronal and sagittal MIPS were obtained from the axial data set and were submitted for review. Automated dose lowering techniques and/or adjustment according to patient size were utilized for this examination. All measurements were calculated based on NASCET criteria. Comparison: None available at the time of this dictation. FINDINGS: CT head: There is no acute intracranial hemorrhage or evidence of acute territorial infarction. No shift of the midline structures, mass effect, or extra-axial abnormalities are shown. Small thyroid nodules are seen which do not require follow-up by ACR criteria. CTA Neck: A 3 vessel aortic arch is shown. There is no significant atherosclerotic plaque in the aortic arch or the origins of the innominate, left common carotid, and left subclavian arteries. The common carotid, external carotid, cervical segments of the internal carotid arteries, and the cervical segments of the vertebral arteries are patent without hemodynamically significant stenosis. The left vertebral artery is dominant. CTA Head: The anterior and posterior cerebral circulations are patent. origin of the right posterior cerebral artery is seen. IMPRESSION: 1. No acute intracranial hemorrhage, evidence of acute territorial infarction, or other acute intracranial disease process. 2. No occlusion, hemodynamically significant stenosis, or dissection in the major cervical arteries. 3. No occlusion, hemodynamically significant stenosis, aneurysm, dissection, or arteriovenous malformation in the major intracranial arteries. Assessment of stenosis of the internal carotid arteries is based on NASCET criteria. ACT 112: Negative or not required by law. Electronically signed by: Von Pyle M.D. 01/01/2023 6:45 PM
[2023-01-01] MEDS ORDERED: NON-FORMULARY MEDICATION (Insulin Glargine [Lantus Solostar U-100 Insulin] 100 unit/mL (3 SQ SCH (21:13)
[2023-01-01] MEDS ORDERED: FAMOTIDINE 20 MG TAB PO PRN (21:13)
[2023-01-01] MEDS ORDERED: ACETAMINOPHEN 500 MG TAB PO PRN (21:13)
[2023-01-01] MEDS ORDERED: HYDROCODONE/ACETAMOPHEN 5/325MG TAB PO PRN (21:13)
[2023-01-01] MEDS ORDERED: PHARMACIST DISCHARGE MED REC CONSULT PRN (21:13)
[2023-01-01] MEDS ORDERED: MELATONIN 3 MG TAB PO PRN (21:48)
[2023-01-01] MEDS: CHOLECALCIFEROL 1,000 UNITS 25 MCG TAB PO SCH (21:49)
[2023-01-01] MEDS: GABAPENTIN 800 MG TAB PO SCH (21:49)
[2023-01-01] MEDS: HEPARIN SOD 5,000 UNIT/0.5 ML VIAL SQ SCH (21:53)
[2023-01-01] MEDS: INSULIN ASPART PER UNIT CHARGE SC SCH (22:05)
[2023-01-01] MEDS ORDERED: Nursing to Pharmacy Communication SCH (23:45)
[2023-01-01] MEDS ORDERED: LORazepam 2 MG/1 ML VIAL IV PRN (23:47)
[2023-01-01] MEDS: LANTUS PER UNIT CHARGE SQ SCH (23:56)
[2023-01-02] MEDS: HEPARIN SOD 5,000 UNIT/0.5 ML VIAL SQ SCH ×3 (06:04→20:54)
[2023-01-02 08:02] LABS: Basophils # (auto) 0.01 K/uL (0-0.2); Basophils % (auto) 0.2 %; Eosinophils # (auto) 0.19 K/uL (0-0.50); Eosinophils % (auto) 4.3 %; Hematocrit (blood only) 34.4 % (37.0-47.0); Hemoglobin 11.7 g/dl (12.0-16.0); Immature Granulocytes # (auto) 0.01 K/uL (0.01-0.20); Immature Granulocytes % (auto) 0.2 %; Lymphocytes # (auto) 1.16 K/uL (1.2-3.4); Lymphocytes % (auto) 26.2 %; Mean Corpuscular Hemoglobin 31.5 pg (25.0-34.0); Mean Corpuscular Volume 92.5 fL (80.0-100.0); Mean Platelet Volume 10.3 fL (9.4-12.4); Monocytes # (auto) 0.29 K/uL (0.11-0.59); Monocytes % (auto) 6.5 %; Neutrophils # (auto) 2.77 K/uL (1.40-6.50); Neutrophils % (auto) 62.6 %; Platelet Count 214 K/uL (130-400); RDW Coefficient of Variation 12.9 % (11.5-14.5); RDW Standard Deviation 43.8 fL (36.4-46.3); Red Blood Count 3.72 M/uL (4.20-5.40); White Blood Count 4.43 K/ul (4.8-10.8)
[2023-01-02 08:13] LABS: BUN Creatinine Ratio 18.2 (10-20); Calcium 9.5 mg/dl (8.6-10.3); Chol HDL Ratio 2.8 (0-5); Est GFR (Non-African American) 64.7 ml/min; Potassium 4.2 mmol/L (3.5-5.1)
[2023-01-02] MEDS: INSULIN ASPART PER UNIT CHARGE SC SCH ×4 (08:27→21:14)
[2023-01-02] MEDS: LANTUS PER UNIT CHARGE SQ SCH ×2 (08:28→21:11)
[2023-01-02 08:34] LABS: Estimated Average Glucose 169 mg/dl; Hemoglobin A1C 7.5 % (4.5-5.6)
--- NOTE | 2023-01-02 08:36 | Electrocardiogram Report ---
Test Reason : Blood Pressure : / mmHG Vent. Rate : 078 BPM Atrial Rate : 078 BPM P-R Int : 190 ms QRS Dur : 094 ms QT Int : 398 ms P-R-T Axes : 050 055 039 degrees QTc Int : 453 ms Normal sinus rhythm Normal ECG When compared with ECG of 01-JAN-2023 16:24, No significant change was found Confirmed by Jas Livingston ([id number]) on 01/02/2023 8:36:05 AM Referred By: REFERRED SELF Confirmed By:Jas Livingston
[2023-01-02] MEDS: GABAPENTIN 800 MG TAB PO SCH ×2 (08:42→20:55)
[2023-01-02] MEDS: LOSARTAN POTASSIUM 50 MG TAB PO SCH (08:42)
[2023-01-02] MEDS ORDERED: ASPIRIN 81 MG ECTAB PO SCH (09:00)
[2023-01-02 09:37] LABS: Appearance Urine Clear (Clear); Bilirubin Urine Negative (Negative); Blood Urine Negative (Negative); Color Urine Dark Yellow; Glucose Urine UA Negative (Negative); Ketones Urine Negative (Negative); Leukocyte Esterase Urine 2+ (Negative); Nitrite Urine Negative (Negative); Protein Urine Negative (Negative); Specific Gravity Urine 1.027 (1.000-1.030); Urobilinogen Urine Negative (Negative); pH Urine 6.5 (4.5-7.5)
--- NOTE | 2023-01-02 09:39 | Neurology Consultation ---
Date of Consultation January 02, 2023 Assessment & Plan (1) Ischemic optic neuropathy of left eye: (2) Retinal artery occlusion, central: Plan I suspect this patient has either ischemic optic neuropathy of the left eye or a central retinal artery occlusion to the left eye. Although her inflammatory markers are slightly elevated, she does not have signs or symptoms suggestive of arteritis, no headache, no pain with eye movement. Patient also has an elevated high-sensitivity troponin. History also notable for diabetic peripheral neuropathy and head tremor. No signs or symptoms suggestive of Parkinson's disease. Agree with brain MRI although patient will need sedation, will need to coordinate with anesthesiology and radiology. Would recommend dual antiplatelet therapy. Would add clopidogrel 75 mg/day. Continue with aspirin 81 mg/day. Continue with dual antiplatelet therapy for 3 weeks, followed by transition to clopidogrel monotherapy. Does not appear to require a statin as her LDL is 36 and total cholesterol is 108. Given lack of signs and symptoms of arteritis and only slight elevation in inflammatory markers, I do not think she would require treatment with corticosteroids or a work-up for temporal arteritis. She will need additional outpatient follow-up with ophthalmology to monitor her vision loss. Unfortunately, I think the prognosis for vision recovery to the left eye is poor. No further immediate neurologic recommendations. Please contact me if you have any questions regarding this neurological evaluation. History of Present Illness Reason for Consultation: Vision loss, stroke evaluation Requesting Physician: Kandi Daily MD Attending Physician: Amol Alberts MD History of Present Illness The patient is a 72-year-old female who is known to the neurology service. She has a history of diabetic peripheral neuropathy, lumbar spinal stenosis, history of spinal fusion and essential tremor. She was referred to the emergency department by her maintenance mechanic millwright for further assessment of acute painless vis ion loss to the left eye. She reports near complete vision loss of the left eye with some sparing of peripheral vision only. No vision disturbance to the right eye noted. No pain with eye movement, no headache. She has been afebrile. She has been modestly hypertensive. A CBC was fairly unremarkable. A comprehensive metabolic panel reveals a modest elevation in glucose. Inflammatory markers are mildly elevated. A CTA of the head and neck are unremarkable, no occlusion, stenosis, dissection, or aneurysm. No evidence of vascular beeding. She has significant claustrophobia and will require anesthesia for MRI. An electrocardiogram revealed a normal sinus rhythm. An echocardiogram completed today revealed severe concentric left ventricular hypertrophy, no left ventricular wall motion abnormalities. Intra-atrial septum intact. No shunt with bubble study. Left atrial size normal. She has been taking daily baby aspirin. Allergies Allergy/AdvReac Type Severity Reaction Status Date / Time allopurinol Allergy Intermediate RASH Verified 01/01/23 17:28 crab Allergy Mild itching Verified 01/01/23 17:28 shellfish derived AdvReac Severe (Lobster) Verified 01/01/23 21:22 N&V scallops AdvReac Intermediate N/V Verified 01/01/23 17:28 lorazepam [From Ativan] AdvReac Mild Hallucinating, Verified 01/01/23 17:28 possible r/t a high dose Home Medications Medication Instructions Recorded Confirmed Type losartan 100 mg tablet 100 mg PO QAM 05/11/18 01/01/23 History cyanocobalamin (vitamin B-12) 2,000 mcg PO QAM 02/19/19 01/01/23 History 2,000 mcg tablet famotidine 20 mg tablet (Pepcid) 20 mg PO BID PRN Heartburn 02/05/21 01/01/23 History acetaminophen 500 mg tablet 500 - 1,000 mg PO Q6H PRN Pain 08/13/21 01/01/23 History (Tylenol Extra Strength) hydrocodone 5 mg-acetaminophen 300 1 tab PO BID PRN Severe Pain 08/13/21 01/01/23 History mg tablet (Scale Score 7-10) cholecalciferol (vitamin D3) 100 2,000 unit PO QPM 08/20/21 01/01/23 History mcg (4,000 unit) capsule (Vitamin D3) insulin glargine 100 unit/mL (3 24 unit (0.24 mL) subcut BID #45 mL 07/11/22 01/01/23 Rx mL) subcutaneous pen (Lantus Solostar U-100 Insulin) evolocumab 140 mg/mL subcutaneous 0 mg subcut .[id number] 07/16/22 01/01/23 History syringe (Repatha Syringe) gabapentin 800 mg tablet 800 mg PO .COMPLEX 90 days #225 07/16/22 01/01/23 Rx tabs insulin aspart U-100 100 unit/mL See Rx Instructions subcut TID #45 07/18/22 01/01/23 Rx (3 mL) subcutaneous pen (Novolog mL FlexPen U-100 Insulin aspart) semaglutide 1 mg/dose (4 mg/3 mL) 0.5 mg (0.375 mL) subcut .COMPLEX 08/19/22 01/01/23 Rx subcutaneous pen injector (Ozempic) #6 mL aspirin 81 mg tablet,delayed 81 mg PO DAILY 01/01/23 01/01/23 History release Patient History Medical History Bilateral leg weakness Chronic SI joint pain Diabetes type 2, controlled IDDM Dysesthesia Dyslipidemia Essential tremor Foot drop, right s/p back surgery 2018 Hx of fall Patient reports that she has fallen several tiimes d/t to weakness and nerve issues in left leg (2018) Hypertension Lumbosacral radiculopathy Spinal stenosis compression from L3-L5 Spinal stenosis of lumbar region Surgical History H/O section x2 H/O repair of right rotator cuff History of cholecystectomy History of colonoscopy History of esophagogastroduodenoscopy (EGD) History of total left knee replacement History of total right knee replacement S/P lumbar spinal fusion (~2018) S/P REAGAN-BSO Family History Mother Stroke Breast cancer Mother , in her 80s of a stroke and had hypertension No problems noted. Father , age 85 with a diagnosis of normal pressure hydrocephalus Prostate cancer Sister Stroke Family/Other Diabetes Nephrolithiasis Grandmother (Maternal) Cancer MALIGNANT NEOPLASM -UTERUS Social History Smoking Status: Never smoker Second Hand Exposure: No; Do You Dip or Chew Tobacco: No; Hx Alcohol Use: No Hx Substance Use: No Preferred Language: Greenlandic Communication Ability: Effective Visual Impairment: Limited Hearing Ability: Normal Manager [employer] Required: No Beliefs That Will Affect Care: None marital status: Current Living Situation: Spouse current occupational status: retired Other Information That Helps Us Care for You: No other: 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 Feels Safe at Home: Yes Safety Concerns: Feels Safe At This Time Assistive Devices: Cane Review of Systems Constitutional: no fever and no chills Eyes: as per Subjective / HPI and + blind spots; no eye pain Ear, Nose, Mouth, Throat: no hearing loss Respiratory: no cough and no dyspnea Cardiovascular: no chest pain and no palpitations Gastrointestinal: no nausea and no vomiting Genitourinary: no dysuria and no urinary incontinence Musculoskeletal: no neck pain and no myalgia Integumentary: no rash and no lesions Neurologic: as per Subjective / HPI and + tremor(s); no gait abnormality, no localized weakness and no loss of sensation Psychiatric: no depression and no anxiety Hematologic / Lymphatic: no easy bleeding and no easy bruising Exam (Neuro) Constitutional: well developed and well nourished; no acute distress Eyes: EOM intact bilaterally; + abnormal visual field confrontation, + no PERRL and no papilledema Cardiovascular: Vessels: no carotid bruit Neurologic: Oriented to:: Person, Place and Time Memory: Short Term Intact and Remote Intact Attention: Span Intact and Concentration Intact Speech Fluency: negative Dysarthria or Dysfluency Fund of Knowledge: Current Events, Past History and Vocabulary Cranial Nerves: Normal V, VII, VIII, IX, X, XI and XII; Abnorm II or III, IV, (Afferent pupillary defect noted for the left eye) Motor Strength: Normal Lower Extremities and Normal Upper Extremities Motor Tone: Normal Lower Extremities and Normal Upper Extremities Muscle Bulk/Involuntary Movements: Head Tremor; negative Muscle Atrophy Sensation: Light Touch Intact, Pain/Temperature Intact and Proprioception Intact; negative Vibration Intact Coordination: Normal; negative Limited Balance, Dysdiadochokinesia, Finger-Nose Abnormal or Heel-Harding Abnormal Deep Tendon Reflexes: Rt Triceps: 2+, Lt Triceps: 2+, Rt Biceps: 2+, Lt Biceps: 2+, Rt Brachioradialis: 2+, Lt Brachioradialis: 2+, Rt Patellar: 2+, Lt Patellar: 2+, Rt Ankle: 1+ and Lt Ankle: 1+ Special Tests: negative Babinski Present Gait: Normal Station and Gait Results & Data Vital Signs (Past 12 Hours) Vital Signs Temp Pulse Pulse Resp BP Pulse Ox O2 Del Method 01/02/23 07:49 37 C 80 18 139/73 95 Room Air 01/02/23 03:15 36.7 C 72 18 137/71 93 Room Air 01/02/23 03:00 71 01/01/23 23:29 36.8 C 64 16 150/74 H 97 Room Air 01/01/23 22:23 36.8 C 78 16 178/96 H 93 Room Air 01/01/23 22:18 Room Air Laboratory Results WBC 4.43, hemoglobin 11.7, hematocrit 34.4, platelet count 214, sodium 139, potassium 4.2, BUN 16, creatinine 0.88, glucose 110, hemoglobin A1c 7.5, calcium 9.5, magnesium 1.9, AST 25, ALT 24, high-sensitivity troponin 103.3, CRP 0.76, ESR 44, triglycerides 171, cholesterol 108, LDL 36, VLDL 34, HDL 38, TSH 2.285 Coding Level of Care Code 07580 INT INP/OBS CARE MIN Diagnoses Ischemic optic neuropathy of left eye H47.012 Retinal artery occlusion, central H34.10
[2023-01-02 10:45] LABS: Epithelial Cell Urine 0-5 /lpf (0-5); RBC Urine 0-4 /hpf (0-4)
[2023-01-02 10:46] LABS: Bacteria Urine Negative (Negative)
[2023-01-02] MEDS ORDERED: CLOPIDOGREL BISULFATE 75 MG TAB PO ONE (12:24)
[2023-01-02] MEDS: SODIUM CHLORIDE 0.9% 1000ML 1,000 ML IV SCH (13:08)
--- NOTE | 2023-01-02 18:14 | Hospitalist Progress Note ---
Date of Service January 02, 2023 Assessment & Plan (1) Stroke-like symptom: Plan: 72 years old female was sent to the ED from ophthalmology office for work up of stroke for possible retinal artery occlusion CT head/CTA head and neck showed no acute intracranial finding Will get MRI brain- patient is asking to completely sedate her for the MRI brain Reviewed her chart showed that she had multiple MRI done where Ativan was given for the MRI She said that she had outpatient MRI done few months ago where she had Valium that did not help her for the MRI She will try to get the MRI with Ativan to be given prior to the MRI Will get an echocardiogram Will consult neurology PT/OT/Speech eval as per stroke protocol Will check Lipid panel, TSH and Hba1c Will continue monitor in telemetry for any arrhythmia Elevated Troponin Trop mildly elevated Denies any chest pain EKG showed no acute ichemic changes Will trend troponin Continue aspirin Will repeat EKG in am and echo ordered DM type 2 (diabetes mellitus, type 2) Will check Hba1c On Lantus 24 units BID and Semaglutide home dose Will do Lantus 15 units BID while inpatient since pt has not eaten much today Insulin sliding scale Continue monitor BS Hypertension Continue losartan stable Hyperlipidemia: On Evolocumab [id number] Will hold while inpatient DVT px on heparin subq Code status Full code Admission and Anticipated Discharge Date Admission Date: January 01, 2023 Results & Data Results & Data Vital Signs (Past 12 Hours) Vital Signs Temp Pulse Pulse Resp BP Pulse Ox O2 Del Method 01/02/23 16:57 36.6 C 76 20 135/76 93 Room Air 01/02/23 16:12 74 01/02/23 12:18 36.7 C 80 16 135/65 95 Room Air 01/02/23 10:24 83 01/02/23 07:49 37 C 80 18 139/73 95 Room Air
[2023-01-02] MEDS: ASPIRIN 81 MG ECTAB PO SCH ×2 (20:53)
[2023-01-02] MEDS: CHOLECALCIFEROL 1,000 UNITS 25 MCG TAB PO SCH (20:53)
[2023-01-02] MEDS ORDERED: LORazepam 2 MG/1 ML VIAL IV ONE (21:00)
[2023-01-03] MEDS: SODIUM CHLORIDE 0.9% 1000ML 1,000 ML IV SCH ×2 (01:33→15:14)
[2023-01-03] MEDS: HEPARIN SOD 5,000 UNIT/0.5 ML VIAL SQ SCH ×2 (06:13→15:14)
[2023-01-03 06:27] LABS: Basophils # (auto) 0.02 K/uL (0-0.2); Basophils % (auto) 0.4 %; Eosinophils # (auto) 0.19 K/uL (0-0.50); Eosinophils % (auto) 4.2 %; Hematocrit (blood only) 31.4 % (37.0-47.0); Hemoglobin 10.7 g/dl (12.0-16.0); Immature Granulocytes # (auto) 0.02 K/uL (0.01-0.20); Immature Granulocytes % (auto) 0.4 %; Lymphocytes # (auto) 1.55 K/uL (1.2-3.4); Lymphocytes % (auto) 34.4 %; Mean Corpuscular Hgb Conc 34.1 g/dL (32.0-36.0); Mean Platelet Volume 10.5 fL (9.4-12.4); Monocytes # (auto) 0.41 K/uL (0.11-0.59); Monocytes % (auto) 9.1 %; Neutrophils # (auto) 2.31 K/uL (1.40-6.50); Neutrophils % (auto) 51.5 %; Platelet Count 178 K/uL (130-400); RDW Coefficient of Variation 12.8 % (11.5-14.5); RDW Standard Deviation 42.1 fL (36.4-46.3); Red Blood Count 3.45 M/uL (4.20-5.40)
[2023-01-03 06:57] LABS: BUN Creatinine Ratio 20.7 (10-20); Calcium 9.3 mg/dl (8.6-10.3); Creatinine Clr Calc Pharmacy 58.9 ml/min; Est GFR (African American) 71.1 ml/min; Est GFR (Non-African American) 61.3 ml/min; Potassium 4.1 mmol/L (3.5-5.1)
[2023-01-03] MEDS: INSULIN ASPART PER UNIT CHARGE SC SCH ×3 (07:51→17:09)
[2023-01-03] MEDS ORDERED: CLOPIDOGREL BISULFATE 75 MG TAB PO SCH (09:00)
[2023-01-03] MEDS: GABAPENTIN 800 MG TAB PO SCH (09:25)
[2023-01-03] MEDS: LOSARTAN POTASSIUM 50 MG TAB PO SCH (09:26)
[2023-01-03] MEDS: LANTUS PER UNIT CHARGE SQ SCH (09:36)
[2023-01-03] MEDS ORDERED: ARTIFICIAL TEARS OP PRN (09:52)
[2023-01-03] MEDS ORDERED: MIDAZOLAM HCL 1 MG/ML 2ML VIAL ONE (12:43)
[2023-01-03] MEDS ORDERED: fentaNYL citrate PF 100 MCG/2 ML VIAL ONE (12:44)
[2023-01-03] MEDS ORDERED: PROPOFOL IV EMULSION 10 MG/ML 100 ML VIAL IV ONE (12:46)
[2023-01-03] MEDS ORDERED: KETAMINE 50 MG/5 ML SYRINGE ONE (12:46)
[2023-01-03] MEDS ORDERED: GADOBUTROL 65ML VIAL IV ONE (14:07)
--- NOTE | 2023-01-03 14:21 | Magnetic Resonance Report ---
MR brain wo/w con CLINICAL HISTORY: L visual disturbance, r/o CRAO, optic neuropathy TECHNIQUE: Multiplanar and multisequence MR images of the brain were obtained prior to and following administration of gadolinium contrast. Comparison: Comparison is made to MRI brain 07/23/2018 FINDINGS: No abnormal restricted diffusion is identified. Foci of T2 and FLAIR hyperintensity are noted in the paraventricular areas consistent with chronic small vessel ischemic disease. Ex vacuo ventriculomegal y and sulcal enlargement is noted compatible with diffuse volume loss. No mass or abnormal enhancemen t is seen. There is no mass effect or midline shift. There is no evidence of acute intraparenchymal h emorrhage. No extra axial fluid collections are seen. The corpus callosum, pituitary gland, and cereb ellar tonsils appear grossly unremarkable. Flow voids of the major intracranial arterial vessels are identified. The imaged portions of the para nasal sinuses, mastoid air cells, and orbits are unremarkable. IMPRESSION: No acute abnormalities. No evidence of acute infarct, abnormal optic nerve enhancement, or diffusion restriction in the retina. ACT 112: Negative or not required by law. Electronically signed by: Von Pyle M.D. 01/03/2023 2:19 PM
--- NOTE | 2023-01-03 14:35 | Anesthesiology Progress Note ---
Date of Service January 03, 2023 Anesthesia Post Procedure Vital Signs Vital Signs: Temp Pulse Pulse Pulse Resp BP Pulse Ox 01/03/23 12:35 36.8 C 88 18 162/100 H 94 01/03/23 11:04 36.9 C 77 18 114/71 94 01/03/23 07:47 72 01/03/23 07:32 36.8 C 72 18 128/76 93 01/03/23 03:05 36.9 C 71 18 141/79 H 94 01/02/23 22:56 36.9 C 65 18 134/68 95 01/02/23 19:39 36.9 C 68 18 132/72 94 01/02/23 16:57 36.6 C 76 20 135/76 93 01/02/23 16:12 74 O2 Del Method 01/03/23 12:35 Room Air 01/03/23 11:04 Room Air 01/03/23 07:47 01/03/23 07:32 Room Air 01/03/23 03:05 Room Air 01/02/23 22:56 Room Air 01/02/23 19:39 Room Air 01/02/23 16:57 Room Air 01/02/23 16:12 Transfer of Care Handoff Completed per policy Notes Mental Status: alert / awake / arousable and participated in evaluation Patient Amnestic to Procedure: Yes Nausea / Vomiting: adequately controlled Pain: adequately controlled Airway Patency, RR, SpO2: stable & adequate BP & HR: stable & adequate Hydration State: stable & adequate Anesthetic Complications: no major complications apparent
--- NOTE | 2023-01-03 14:36 | Anesthesiology Consultation ---
Date of Service January 03, 2023 Assessment & Plan Chart Review Chart Review: Acceptable Risk for Surgery Consults Requested none History Surgery Operation Date: 01/03/23 13:00 Proposed Procedures p MRI Brain Combo with / without and with Anesthesia Sedation - Amol Alberts MD Height/Weight Height: 5 ft 3 in Weight: 95.254 kg Allergies Allergy/AdvReac Type Severity Reaction Status Date / Time allopurinol Allergy Intermediate RASH Verified 01/01/23 17:28 crab Allergy Mild itching Verified 01/01/23 17:28 shellfish derived AdvReac Severe (Lobster) Verified 01/01/23 21:22 N&V scallops AdvReac Intermediate N/V Verified 01/01/23 17:28 lorazepam [From Ativan] AdvReac Mild Hallucinating, Verified 01/01/23 17:28 possible r/t a high dose Medications Home Medications Medication Instructions Recorded Confirmed Last Taken losartan 100 mg tablet 100 mg PO QAM 05/11/18 01/01/23 10/14/21 09:00 cyanocobalamin (vitamin B-12) 2,000 mcg PO QAM 02/19/19 01/01/23 10/13/21 2,000 mcg tablet famotidine 20 mg tablet (Pepcid) 20 mg PO BID PRN Heartburn 02/05/21 01/01/23 10/13/21 acetaminophen 500 mg tablet 500 - 1,000 mg PO Q6H PRN Pain 08/13/21 01/01/23 10/14/21 15:00 (Tylenol Extra Strength) hydrocodone 5 mg-acetaminophen 300 1 tab PO BID PRN Severe Pain 08/13/21 01/01/23 10/14/21 21:00 mg tablet (Scale Score 7-10) cholecalciferol (vitamin D3) 100 2,000 unit PO QPM 08/20/21 01/01/23 10/14/21 09:00 mcg (4,000 unit) capsule (Vitamin D3) insulin glargine 100 unit/mL (3 24 unit (0.24 mL) subcut BID #45 mL 07/11/22 01/01/23 Unknown mL) subcutaneous pen (Lantus Solostar U-100 Insulin) evolocumab 140 mg/mL subcutaneous 0 mg subcut .[id number] 07/16/22 01/01/23 Unknown syringe (Repatha Syringe) gabapentin 800 mg tablet 800 mg PO .COMPLEX 90 days #225 07/16/22 01/01/23 Unknown tabs insulin aspart U-100 100 unit/mL See Rx Instructions subcut TID #45 07/18/22 01/01/23 Unknown (3 mL) subcutaneous pen (Novolog mL FlexPen U-100 Insulin aspart) semaglutide 1 mg/dose (4 mg/3 mL) 0.5 mg (0.375 mL) subcut .COMPLEX 08/19/22 01/01/23 Unknown subcutaneous pen injector (Ozempic) #6 mL aspirin 81 mg tablet,delayed 81 mg PO DAILY 01/01/23 01/01/23 Unknown release Active Medications Generic Name Dose Route Start Last Admin Trade Name Freq PRN Reason Stop Dose Admin Aspirin 81 mg 01/01/23 22:00 01/02/23 20:53 Aspirin 81 Mg Ectab PO 01/31/23 21:59 81 mg HS TODD Administration Clopidogrel Bisulfate 75 mg 01/03/23 09:00 01/03/23 09:25 Clopidogrel Bisulfate 75 Mg Tab PO 02/02/23 08:59 75 mg QAM TODD Administration Gabapentin 800 mg 01/01/23 21:13 01/03/23 09:25 Gabapentin 800 Mg Tab PO 01/31/23 21:12 800 mg BID TODD Administration Heparin Sodium (Porcine) 5,000 units 01/01/23 22:00 01/03/23 06:13 Heparin Sod 5,000 Unit/0.5 Ml Vial SQ 01/31/23 21:59 5,000 units Q8 TODD Administration Sodium Chloride 1,000 mls @ 80 mls/hr 01/02/23 12:30 01/03/23 01:33 Nss 1000ml IV 02/01/23 12:29 80 mls/hr .[id number] TODD Administration Insulin Aspart 0 units 01/01/23 21:00 01/03/23 11:36 Insulin Aspart Per Unit Charge SC 01/31/23 20:59 Not Given ACHS TODD Insulin Glargine 15 units 01/01/23 21:13 01/03/23 09:36 Lantus Per Unit Charge SQ 01/31/23 21:12 Not Given BID TODD Losartan Potassium 100 mg 01/02/23 09:00 01/03/23 09:26 Losartan Potassium 50 Mg Tab PO 02/01/23 08:59 100 mg QAM TODD Administration Melatonin 9 mg 01/01/23 21:48 01/03/23 01:33 Melatonin 3 Mg Tab PO 01/31/23 21:47 9 mg HS PRN Administration Sleep Vitamin D 2,000 units 01/01/23 21:13 01/02/23 20:53 Cholecalciferol 1,000 Units 25 Mcg Tab PO 01/31/23 21:12 2,000 units QPM TODD Administration NPO Date Last Intake of Fluids: 01/02/23 Time Last Intake of Fluids: 23:00 Date Last Intake of Solids: 01/02/23 Time Last Intake of Solids: 23:00 Past Medical History Medical History Bilateral leg weakness Chronic SI joint pain Diabetes type 2, controlled IDDM Dysesthesia Dyslipidemia Essential tremor Foot drop, right s/p back surgery 2018 Hx of fall Patient reports that she has fallen several tiimes d/t to weakness and nerve issues in left leg (2018) Hypertension Lumbosacral radiculopathy Spinal stenosis compression from L3-L5 Spinal stenosis of lumbar region Past Family History Family History Mother Stroke Breast cancer Mother , in her 80s of a stroke and had hypertension No problems noted. Father , age 85 with a diagnosis of normal pressure hydrocephalus Prostate cancer Sister Stroke Family/Other Diabetes Nephrolithiasis Grandmother (Maternal) Cancer MALIGNANT NEOPLASM -UTERUS Past Surgical History Surgical History H/O section x2 H/O repair of right rotator cuff History of cholecystectomy History of colonoscopy History of esophagogastroduodenoscopy (EGD) History of total left knee replacement History of total right knee replacement S/P lumbar spinal fusion (~2017) S/P REAGAN-BSO Social History Smoking Status: Never smoker tobacco type: cigarettes Do You Dip or Chew Tobacco: No Hx Alcohol Use: No alcohol intake frequency: holidays/special occasions only Hx Substance Use: No substance use type: does not use Physical Exam Vital Signs Last Vital Signs Temp 36.8 C 01/03/23 12:35 Pulse 88 01/03/23 12:35 Resp 18 01/03/23 12:35 BP 162/100 H 01/03/23 12:35 Pulse Ox 94 01/03/23 12:35 O2 Del Method Room Air 01/03/23 12:35 Testing Laboratory Results 01/03/23 05:36 01/03/23 05:36 PT 10.9 Seconds (9.0-12.0) 01/01/23 16:20 INR 1.0 (0.9-1.1) 01/01/23 16:20 APTT 26.3 Seconds (21.0-31.0) 01/01/23 16:20 Hemoglobin A1c 7.5 % (4.5-5.6) H 01/02/23 07:25 Urine Color Dark Yellow 01/02/23 06:00 Urine Appearance Clear (Clear) 01/02/23 06:00 Urine pH 6.5 (4.5-7.5) 01/02/23 06:00 Ur Specific Hunter 1.027 (1.000-1.030) 01/02/23 06:00 Urine Protein Negative (Negative) 01/02/23 06:00 Urine Glucose (UA) Negative (Negative) 01/02/23 06:00 Urine Ketones Negative (Negative) 01/02/23 06:00 Urine Nitrite Negative (Negative) 01/02/23 06:00 Ur Leukocyte Esterase 2+ (Negative) H 01/02/23 06:00 Urine WBC (Auto) Not Reportable 01/02/23 06:00 Urine RBC (Auto) Not Reportable 01/02/23 06:00 U Hyaline Cast (Auto) Not Reportable 01/02/23 06:00 U Epithel Cells (Auto) Not Reportable 01/02/23 06:00 Urine Bacteria (Auto) Not Reportable 01/02/23 06:00 Urine RBC 0-4 /hpf (0-4) 01/02/23 06:00 Urine WBC 10-30 /hpf (0-5) H 01/02/23 06:00 Ur Epithelial Cells 0-5 /lpf (0-5) 01/02/23 06:00 01/03/23 01/03/23 12:37 11:26 POC Glucose 145 H 151 H
[2023-01-03] MEDS ORDERED: STROKE PATIENT DISCHARGE STA (16:44)
--- NOTE | 2023-01-05 16:54 | Hospitalist Progress Note ---
Date of Service January 04, 2023 Assessment & Plan (1) Stroke-like symptom: Plan: Per admitting service notes with addendum: 72 years old female was sent to the ED from ophthalmology office for work up of stroke for possible retinal artery occlusion Acute left eye vision loss, 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 No evidence of acute infarct, abnormal optic nerve enhancement, or diffusion restriction in the retina. CT angiogram head and neck: 1. No acute intracranial hemorrhage, evidence of acute territorial infarction, or other acute intracranial disease process. 2. No occlusion, hemodynamically significant stenosis, or dissection in the major cervical arteries. 3. No occlusion, hemodynamically significant stenosis, aneurysm, dissection, or arteriovenous malformation in the major intracranial arteries. Evaluated by neurology service, Dr. 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 central retinal artery occlusion Recommend dual antiplatelet therapy with addition of Plavix 75 mg daily to aspirin x3 weeks After 3 weeks, discontinue aspirin and continue with Plavix Continue treatment for dyslipidemia Given lack of signs and symptoms of arthritis, slight elevation of inflammatory markers, not felt to require treatment with corticosteroids or work-up for tempo ral arteritis Continue outpatient follow-up with ophthalmology Elevated Troponin Trop 30, 100, 100 Denies any chest pain EKG showed no acute ichemic changes Echocardiogram: EF 65 to 70%, grade 1 diastolic dysfunction, moderate aortic stenosis, mild to moderate mitral regurgitation No evidence for atrial septal defect No interatrial shunt DM type 2 (diabetes mellitus, type 2) A1c 7.5 Continue close outpatient follow-up for strict blood glucose control Hypertension Continue losartan stable Continue close outpatient follow-up for strict blood pressure control Hyperlipidemia: On Evolocumab [id number] Triglycerides 171, total cholesterol 108, LDL 36, HDL 38 DVT px on heparin subq Code status Full code Disposition Discharge to home Follow-up with PCP in 1 week Follow-up with optical goods drill operator in 1 week Admission and Anticipated Discharge Date Admission Date: January 01, 2023 Subjective Follow-up for acute left vision loss, possible ischemic optic neuropathy versus central retinal artery occlusion, etc. Patient seen resting in bed, comfortable, not in distress States left eye poor vision same as yesterday Right eye essentially normal Denies any other new focal neurologic deficits no chest pain, dyspnea, palpitations, dizziness No A-fib on telemetry Review of Systems Review of Systems: all noted and negative except for above Physical Exam Physical Exam: General- oriented x 3, not in distress, speaks in sentences with no effort or accessory muscle use Eyes- anicteric Neck- no JVD Lungs- clear breath sounds bilaterally, no rales/wheezes Heart- normal rate, regular rhythm; no murmurs Abdomen- normal bowel sounds, nondistended, soft, nontender Extremities- no pretibial edema, no calf tenderness Neuro- alert, oriented x 3; very poor visual acuity left eye-shadows , no new gross focal neurologic deficits Skin- warm & dry
--- NOTE | 2023-01-05 16:55 | Discharge Summary ---
Discharge Summary Date of Service January 05, 2023 Notes For Next Care Provider Medication Changes From Visit New medication: Plavix 75 mg p.o. daily indefinitely Discontinue aspirin after 3 weeks. Admission HPI Per Admitting Provider 72 yo Female with PMH of diabetes, hypertension, past tobacco abuse, Spinal stenosis of lumbar region, S/P lumbar spinal fusion, diabetic neuropathy was sent to the ER from ophthalmology office to [facility] for work up of stroke. Pt said early today she felt a floater in her left eye. She said that she is having difficulty to see in her left eye where she noted a romero color like a shadow in her vision. She went to her Ophthalmology and a retinal specialist that attempted to release the pressure behind her eyes that was unsuccessful. Her ophthalmology sent her to the ER to get stroke work up for possible renal artery occlusion. Pt denies any other neurology symptoms such as slurred speech, numbness, weakness. Pt said that she does not think that she can get an MRI without completely sedating her. She denies any chest pain, palpitation, dizziness, SOB, fever and chills. Admission Exam Per Admitting Provider General- No acute distress Head- atraumatic Eyes- pupils dilated and symmetry, EOMI, unable to detect the light when shined in her left eye ENT- oropharynx clear Neck- supple, no JVD Lungs- clear to auscultation Heart- regular rhythm; no murmur Abdomen- normal bowel sounds, soft, nontender Extremities- no calf tenderness Neuro- alert, oriented x 3; EOMI; no facial palsy; no dysarthria, no tremors, normal strength Skin- warm & dry Principal Dx & Hospital Course #1 = Principal Diagnosis (1) Stroke-like symptom: Per admitting service notes with addendum: 72 years old female was sent to the ED from ophthalmology office for work up of stroke for possible retinal artery occlusion Acute left eye vision loss, 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 No evidence of acute infarct, abnormal optic nerve enhancement, or diffusion restriction in the retina. CT angiogram head and neck: 1. No acute intracranial hemorrhage, evidence of acute territorial infarction, or other acute intracranial disease process. 2. No occlusion, hemodynamically significant stenosis, or dissection in the major cervical arteries. 3. No occlusion, hemodynamically significant stenosis, aneurysm, dissection, or arteriovenous malformation in the major intracranial arteries. Evaluated by neurology service, Dr. 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 central retinal artery occlusion Recommend dual antiplatelet therapy with addition of Plavix 75 mg daily to as pirin x3 weeks After 3 weeks, discontinue aspirin and continue with Plavix Continue treatment for dyslipidemia Given lack of signs and symptoms of arthritis, slight elevation of inflammatory markers, not felt to require treatment with corticosteroids or work-up for temporal arteritis Continue outpatient follow-up with ophthalmology Elevated Troponin Trop 30, 100, 100 Denies any chest pain EKG showed no acute ichemic changes Echocardiogram: EF 65 to 70%, grade 1 diastolic dysfunction, moderate aortic stenosis, mild to moderate mitral regurgitation No evidence for atrial septal defect No interatrial shunt DM type 2 (diabetes mellitus, type 2) A1c 7.5 Continue close outpatient follow-up for strict blood glucose control Hypertension Continue losartan stable Continue close outpatient follow-up for strict blood pressure control Hyperlipidemia: On Evolocumab [id number] Triglycerides 171, total cholesterol 108, LDL 36, HDL 38 DVT px on heparin subq Code status Full code Disposition Discharge to home Follow-up with PCP in 1 week Follow-up with shared services manager in 1 week Discharge Exam General- oriented x 3, not in distress, speaks in sentences with no effort or accessory muscle use Eyes- anicteric Neck- no JVD Lungs- clear breath sounds bilaterally, no rales/wheezes Heart- normal rate, regular rhythm; no murmurs Abdomen- normal bowel sounds, nondistended, soft, nontender Extremities- no pretibial edema, no calf tenderness Neuro- alert, oriented x 3; very poor visual acuity left eye-shadows , no new gross focal neurologic deficits Skin- warm & dry Updated Medication List Medication Instructions Recorded Confirmed Type losartan 100 mg tablet 100 mg PO QAM 05/11/18 01/01/23 History cyanocobalamin (vitamin B-12) 2,000 mcg PO QAM 02/19/19 01/01/23 History 2,000 mcg tablet famotidine 20 mg tablet (Pepcid) 20 mg PO BID PRN Heartburn 02/05/21 01/01/23 History acetaminophen 500 mg tablet 500 - 1,000 mg PO Q6H PRN Pain 08/13/21 01/01/23 History (Tylenol Extra Strength) hydrocodone 5 mg-acetaminophen 300 1 tab PO BID PRN Severe Pain 08/13/21 01/01/23 History mg tablet (Scale Score 7-10) cholecalciferol (vitamin D3) 100 2,000 unit PO QPM 08/20/21 01/01/23 History mcg (4,000 unit) capsule (Vitamin D3) insulin glargine 100 unit/mL (3 24 unit (0.24 mL) subcut BID #45 mL 07/11/22 01/01/23 Rx mL) subcutaneous pen (Lantus Solostar U-100 Insulin) evolocumab 140 mg/mL subcutaneous 0 mg subcut .[id number] 07/16/22 01/01/23 History syringe (Repatha Syringe) gabapentin 800 mg tablet 800 mg PO .COMPLEX 90 days #225 07/16/22 01/01/23 Rx tabs insulin aspart U-100 100 unit/mL See Rx Instructions subcut TID #45 07/18/22 01/01/23 Rx (3 mL) subcutaneous pen (Novolog mL FlexPen U-100 Insulin aspart) semaglutide 1 mg/dose (4 mg/3 mL) 0.5 mg (0.375 mL) subcut .COMPLEX 08/19/22 01/01/23 Rx subcutaneous pen injector (Ozempic) #6 mL aspirin 81 mg tablet,delayed 81 mg PO DAILY #20 tabs 01/03/23 01/01/23 Rx release clopidogrel 75 mg tablet 75 mg PO QAM 30 days #30 tabs 01/03/23 Rx Hospital Stay Data Consultations 01/01/23 18:45 ED Decision to Admit Stat 01/01/23 21:13 Consult Neurology Routine Procedures Performed Operation Date: 01/03/23 13:00 <No data on this case meets the specified criteria> Diagnostic Imagining Performed 01/01/23 16:11 CT angio head w con Stat CT angio neck with con Stat TECHNIQUE: Contiguous axial CT images of the head were acquired from the base of the skull to the vertex without intravenous contrast administration. CT angiography of the head and neck was performed following intravenous administration of iodinated contrast. Coronal and sagittal MIPS were obtained from the axial data set and were submitted for review. Automated dose lowering techniques and/or adjustment according to patient size were utilized for this examination. All measurements were calculated based on NASCET criteria. Comparison: None available at the time of this dictation. FINDINGS: CT head: There is no acute intracranial hemorrhage or evidence of acute territ orial infarction. No shift of the midline structures, mass effect, or extra- axial abnormalities are shown. Small thyroid nodules are seen which do not require follow-up by ACR criteria. CTA Neck: A 3 vessel aortic arch is shown. There is no significant atherosclerotic plaque in the aortic arch or the origins of the innominate, left common carotid, and left subclavian arteries. The common carotid, external carotid, cervical segments of the internal carotid arteries, and the cervical segments of the vertebral arteries are patent without hemodynamically significant stenosis. The left vertebral artery is dominant. CTA Head: The anterior and posterior cerebral circulations are patent. origin of the right posterior cerebral artery is seen. IMPRESSION: 1. No acute intracranial hemorrhage, evidence of acute territorial infarction, or other acute intracranial disease process. 2. No occlusion, hemodynamically significant stenosis, or dissection in the major cervical arteries. 3. No occlusion, hemodynamically significant stenosis, aneurysm, dissection, or arteriovenous malformation in the major intracranial arteries. Assessment of stenosis of the internal carotid arteries is based on NASCET criteria. ACT 112: Negative or not required by law. Electronically signed by: Von Pyle M.D. 01/01/2023 6:[address] head/brain wo con Stat TECHNIQUE: Contiguous axial CT images of the head were acquired from the base of the skull to the vertex without intravenous contrast administration. CT angiography of the head and neck was performed following intravenous administration of iodinated contrast. Coronal and sagittal MIPS were obtained from the axial data set and were submitted for review. Automated dose lowering techniques and/or adjustment according to patient size were utilized for this examination. All measurements were calculated based on NASCET criteria. Comparison: None available at the time of this dictation. FINDINGS: CT head: There is no acute intracranial hemorrhage or evidence of acute territorial infarction. No shift of the midline structures, mass effect, or extra-axial abnormalities are shown. Small thyroid nodules are seen which do not require follow-up by ACR criteria. CTA Neck: A 3 vessel aortic arch is shown. There is no significant atherosclerotic plaque in the aortic arch or the origins of the innominate, left common carotid, and left subclavian arteries. The common carotid, external carotid, cervical segments of the internal carotid arteries, and the cervical segments of the vertebral arteries are patent without hemodynamically significant stenosis. The left vertebral artery is dominant. CTA Head: The anterior and posterior cerebral circulations are patent. origin of the right posterior cerebral artery is seen. IMPRESSION: 1. No acute intracranial hemorrhage, evidence of acute territorial infarction, or other acute intracranial disease process. 2. No occlusion, hemodynamically significant stenosis, or dissection in the major cervical arteries. 3. No occlusion, hemodynamically significant stenosis, aneurysm, dissection, or arteriovenous malformation in the major intracranial arteries. Assessment of stenosis of the internal carotid arteries is based on NASCET criteria. ACT 112: Negative or not required by law. 01/03/23 12:16 MR brain wo/w con Routine No abnormal restricted diffusion is identified. Foci of T2 and FLAIR hyperintensity are noted in the paraventricular areas consistent with chronic small vessel ischemic disease. Ex vacuo ventriculomegaly and sulcal enlargement is noted compatible with diffuse volume loss. No mass or abnormal enhancement is seen. There is no mass effect or midline shift. There is no evidence of acute i ntraparenchymal hemorrhage. No extra axial fluid collections are seen. The corpus callosum, pituitary gland, and cerebellar tonsils appear grossly unremarkable. Flow voids of the major intracranial arterial vessels are identified. The imaged portions of the paranasal sinuses, mastoid air cells, and orbits are unremarkable. IMPRESSION: No acute abnormalities. No evidence of acute infarct, abnormal optic nerve enhancement, or diffusion restriction in the retina. ACT 112: Negative or not required by law. Pending Results Patient Have Any Pending Studies at Discharge: No Discharge Instructions Given to Patient (Per Discharging Provider) PLEASE REFER TO YOUR NEW MEDICATION LIST AND FOLLOW INSTRUCTIONS CAREFULLY. YOUR NEW MEDICATIONS INCLUDE: Plavix-antiplatelet, for prevention of central retinal artery occlusion, ischemic optic neuropathy -To be taken indefinitely Please stop aspirin after 3 weeks. PLEASE CALL YOUR PRIMARY CARE PHYSICIAN OR RETURN TO THE ER IF WITH WORSENING OF SYMPTOMS, INCLUDING Visual disturbance on the right eye, weakness or numbness in any part of the body, dizziness, headache, Eye pain, etc. FOLLOW UP WITH PRIMARY CARE PHYSICIAN IN 1 WEEK. FOLLOW-UP WITH SOLUTION DEVELOPER IN 1 WEEK. Total Time Total Time Spent Total Time Spent (In Minutes): > 30 minutes
== END 2023-01-03 18:07 | disposition home or self-care (01) | DRG 123 ==
LOC: ED 15:50 → SUATTDRO 20:00 → 2E 20:00